=== PATIENT | male | born 1945 | race Caucasian/White ===

== ENCOUNTER 2017-03-05 06:09 | Day surgery (SDC) | payer MEDICARE, OTHER ==
[~2017-03-05 06:09] MED LIST: RINGER'S SOLUTION,LACTATED 1,000 ML IV PRN
[2017-03-05] MEDS ORDERED: RINGER'S SOLUTION,LACTATED 1,000 ML IV PRN (08:07)
[2017-03-05 09:06] VITALS: BP 113/66
--- NOTE | 2017-03-05 14:24 | OR ---
Operative Report - Dictated Report Narrative: OPERATIVE REPORT DATE OF OPERATION: 03/05/2017 PREOPERATIVE DIAGNOSIS: No recent dedicated colon studies. Diverticulosis POSTOPERATIVE DIAGNOSIS: 3 mm polyps at 15 cm and 130 cm. 4 mm polyp at 25 cm (pathology pending). Significant diverticulosis OPERATION: Colonoscopy with hot biopsy forceps polypectomies at 15 cm, 25 cm, and 130 cm SURGEON: Justin Malik MD ANESTHESIA: MAC Raciel Charlotteher MAGAÑA INDICATIONS FOR PROCEDURE: The patient is a 71-year-old male referred by Dr. Navarro. He has had previous colonoscopies in 1996, 1997, and 2005. He has diverticulosis. There is no family history of colon cancer. FINDINGS: A 3 mm polyps at 15 cm and 130 cm. 4 mm polyp at 25 cm (pathology pending). Capacious, redundant colon with significant diverticulosis NARRATIVE OF PROCEDURE: The patient was identified in the holding area, and prior to the administration of anesthetic, a multidisciplinary timeout was observed. With the patient in the left lateral position and after the administration of intravenous sedation, the perineum was inspected. There was no evidence of pilonidal disease or skin breakdown. The external appearance of the anus was normal. Sphincter tone was good. The flexible fiberoptic colonoscope was inserted into the rectum which was insufflated with air. The rectal mucosa and submucosal vascular pattern appeared normal, the prep was seen to be complete. At 15 cm there was a 3 mm area of polypoid change which was biopsied and thoroughly destroyed with electrocautery. The site was seen to be complete and hemostatic. The scope was advanced through the sigmoid colon , which contained numerous large non-impacted noninflamed diverticular openings. At 25 cm a 4 mm area of polypoid change was encountered. This was biopsied and then thoroughly destroyed with electrocautery. The site was seen to be complete and hemostatic. The scope was advanced up the descending colon, and around the splenic flexure where the triangular haustral architecture of the transverse colon was seen. The scope was advanced across the transverse colon, around the hepatic flexure to the cecum. The mucosa at this level appeared normal. The scope was then slowly withdrawn in a circular fashion so that all aspects of colonic mucosa were inspected. At 130 cm a 3 mm area of polypoid change was encountered. This was biopsied and then thoroughly destroyed with electrocautery. The site was seen to be complete and hemostatic. Scope was then further withdrawn. The colon was capacious and character and redundant in course. The haustral architecture appeared well preserved throughout with no evidence of external compression. The mucosa and submucosal vascular pattern appeared normal, specifically there was no gross evidence to suggest colitis or inflammatory bowel disease and no AV malformations were seen. The diverticulosis was moderate in degree, no inflammation or impaction was noted. No additional polyps were encountered. The scope was gradually withdrawn to the level of the rectum. As much insufflated air as possible was removed. The scope was withdrawn from the patient and the procedure terminated. The patient tolerated the anesthetic and procedure well without complication and was transferred back to the ambulatory surgery area awake and in stable condition. The patient remained stable throughout a period of postoperative observation. He denied abdominal discomfort, was able to tolerate by mouth intake, and was up without assistance. I shared the operative findings with the patient and he was given copies of the photographs which appear in the medical record. He was discharged home with instructions not to engage in hazardous activity today, but may resume normal activity tomorrow, and advance diet as tolerated. He is to continue those medications as listed in the history and physical exam. I made arrangements to contact him with the biopsy reports and will make additional recommendations for treatment and follow-up based upon those results. A pamphlet on diverticular disease was reviewed with him and his and given to them for reference. It was suggested that he begin Benefiber to titrate as needed given the degree of diverticulosis. Reviewed and electronically signed
== END 2017-03-05 06:10 | disposition home or self-care (01) ==
LOC: AMB 06:09
PROVIDERS: ATTEND Surgery
PROC: 0DBL8ZX Excision of Transverse Colon, Via Natural or Artificial Opening Endoscopic, Diagnostic (ICD-10-PCS; 2017-03-05)
PROC: 0DBN8ZX Excision of Sigmoid Colon, Via Natural or Artificial Opening Endoscopic, Diagnostic (ICD-10-PCS; principal; 2017-03-05 07:00)
DX: Z12.11 Encounter for screening for malignant neoplasm of colon (principal); D12.5 Benign neoplasm of sigmoid colon; D12.3 Benign neoplasm of transverse colon; K57.30 Diverticulosis of large intestine without perforation or abscess without bleeding; E11.9 Type 2 diabetes mellitus without complications; I10 Essential (primary) hypertension; E78.00 Pure hypercholesterolemia, unspecified; Z87.891 Personal history of nicotine dependence; Z68.35 Body mass index [BMI] 35.0-35.9, adult

== ENCOUNTER 2018-09-16 19:44 | Observation (INO) ==
[2018-09-16 20:29] LABS: Hematocrit 39.9 % (42.0-52.0); Hemoglobin 13.8 gm/dL (13.5-18.0); Mean Cell Volume 89.7 fl (78-100); Mean Corpuscular Hgb Conc 34.6 g/dl (32-36); Mean Platelet Volume 12.3 fl (8-11.3); Neutrophil % 64.5 % (42-75.0); Platelet Count 151 K/mm3 (150-450); Red Blood Count 4.45 M/mm3 (4.7-6.0); Red Cell Distribution Width 12.2 % (11.5-14.0); White Blood Count 7.7 K/mm3 (4.0-10.5)
--- NOTE | 2018-09-16 20:29 | ERNOTE ---
Neuro HPI ER Record Presenting Symptoms: confusion Time Seen by Provider: 09/16/18 19:45 Source: patient, family, EMS Exam Limitations: clinical condition Immunizations: IMMUNIZATION HX Immunizations Up to Date Yes History of Influenza Vaccine Yes Hx Pneumococcal Vaccination No Allergies/Adverse Reactions: Allergies Allergy/AdvReac Type Severity Reaction Status Date / Time No Known Allergies Allergy Verified 09/16/18 20:01 Home Medications: HOME MEDICATIONS Aspirin [Aspirin Enteric Coated] 81 mg PO DAILY 05/24/15 [Last Taken 09/16/18 06:00] Blood-Glucose Meter [Blood Glucose Monitoring] 1 ea MC DAILY 02/07/16 [Last Taken 09/16/18 06:00] losartan 100 mg-hydrochlorothiazide 25 mg tablet 1 tab PO DAILY #90 tab 10/17/17 [Last Taken 09/16/18 06:00] rosuvastatin 10 mg tablet 10 mg PO DAILY #90 tab 02/24/18 [Last Taken 09/15/18 06:00] metformin 1,000 mg tablet 1,000 mg PO BID #180 tab 04/21/18 [Last Taken 09/16/18 17:30] sildenafil (antihypertensive) 20 mg tablet 20 mg PO DAILY PRN #90 tab 04/24/18 [Last Taken Unknown] flecainide 100 mg tablet See Rx Instructions .ROUTE .COMPLEX #180 tablet 06/22/18 [Last Taken 09/16/18 17:30] metoprolol tartrate 50 mg tablet See Rx Instructions .ROUTE .COMPLEX #180 tablet 06/22/18 [Last Taken 09/16/18 17:30] Liraglutide [Victoza 3-Getachew] 1.2 mg SUBCUT .COMPLEX 09/16/18 [Last Taken 09/16/18 06:00] - History of Present Illness Narrative: states that they were eating dinner sometime around 19:00 and the patient began to have some tingling and numbness in his right hand. He then began to be confused and talk making no sense. states she called a nurse friend to get advice who said she should call 911 immediately which she did. Upon arrival EMS state the patient was confused. Upon arrival in the ED patient would not follow commands, did not know his name or birthdate but when his hands were placed out in front of him he held them there and did not have drift. Patient immediately went to CT and upon return back into the ED patient was awake and talking and alert and oriented. Onset: sudden onset Severity: moderate - Character of Deficits New weakness: Present: RUE Additional Deficits: Present: impaired speech Baseline Cognition: Present: alert, oriented x 4 Baseline Gait: Present: walks w/o assistance Associated Symptoms: Reports: none Review of Systems - Review of Systems Constitutional: Absent: recent illness ENT: Absent: nose congestion, nasal drainage Respiratory: Absent: shortness of breath, cough Cardiology: Absent: chest pain Gastrointestinal/Abdominal: Absent: nausea, vomiting Genitourinary: Absent: frequency, dysuria Musculoskeletal: Absent: back pain Skin: Absent: rash Neurological: Present: See HPI, other - states he has had episodes of confusion such as this but not as severe since May of this year. He saw neurology and they found no specific abnormalities. He began physical therapy for balance and seems to have been more clear since he started physical therapy. Medical History (Updated 09/16/18 @ 21:31 by Pravin Rangel DO) A-fib Arthritis Diabetes Erectile dysfunction Herniated disc Onset Date: ~2002 lumbar Hypercholesteremia Hypertension Hypogonadism in male Spinal stenosis Onset Date: ~10/22/16 Surgical History: Surgical History (Updated 02/25/18 @ 08:10 by Margot Fam) Cervical vertebral fusion Onset Date: ~01/30/17 [facility]7 H/O Achilles tendon repair left- done at [facility] H/O adenoidectomy H/O arthroscopic knee surgery 1 arthroscopic, 3 open H/O foot surgery Onset Date: ~01/2011 right ft. 1st tarsometatarsal joint fusion, 2nd, 3rd and 4th metatarsophalangeal joint capsulotomy, debridement, joint repair of subluxation, 2nd and 3rd distal metatarsal osteotomy and 5th bunionette correction with distal soft tissue reconstruction and 5th metatarsal osteotomy. H/O repair of left rotator cuff H/O repair of rotator cuff lft 2004 rt 1989 H/O shoulder surgery Onset Date: ~03/2014 [facility]- shoulder replaced History of tonsillectomy Hx of colonoscopy 1996, 1997, 12/16/05, 03/16 '97-polyp. '98 normal. '06 bagan-sigmoid diverticulosis, 2017 colon polyps all tubular adenoma. Hx of cystoscopy 12/06/14, 12/26/14, 04/17/15. [facility] Dr. Gilmore Hx of total knee replacement Onset Date: ~2006 [facility]- left Family History: Family History (Updated 10/14/17 @ 16:52 by Shelby Em CMA) Father Brain tumor Diabetes, Onset Age: 11 Mother CHF (congestive heart failure) Sister Cancer throat CA Social History: Preferred Language Chinese Smoking Status Former smoker Abuse History No History of abuse Psych History No pertinent hx Alcohol Use occasionally (Last Updated 06/30/18 @ 09:39 by Sarah Haas DPM) No Social History Section defined Physical Exam - Physical Exam General Appearance: Present: wd/wn, alert, no apparent distress Head Exam: Present: normal inspection, no evidence of injury Eye Exam: Normal inspection: bilateral, PERRL: bilateral, EOMI: bilateral Ears, Nose, Throat: Present: normal ENT inspection, normal pharynx Neck: Present: normal inspection, nontender Respiratory: Present: no respiratory distress, no accessory muscle use, chest nontender, lungs clear Cardiovascular/Chest: Present: regular rate, rhythm, no murmur Gastrointestinal/Abdominal: Present: normal bowel sounds, nontender, nondistended, soft Extremity Exam: Present: normal inspection, normal range of motion, no edema Neurological Exam: Present: alert, oriented, normal mood/affect, no motor/sensory deficits Skin Exam: Present: normal color, warm/dry Lymphatic Exam: Present: no adenopathy Walter Coma Scale - Assess Eye Opening: Spontaneous Motor: Obeys Commands Verbal: Oriented - initially 13 - Total Coma Scale Total: 15 Initial Stroke Assessment - Date/Time of assessment Stroke Scale Date: 09/16/18 Stroke Scale Time: 19:50 - NIH Stroke Scale Level of Consciousness: Alert LOC Questions (Year and Age): Answers neither correctly LOC Commands (open/close eyes/fist): Performs neither correct Lateral Gaze Paresis: None Visual Field Loss: No visual loss Facial Palsy: Minor paralysis Right Arm Motor (10 sec hold): No drift Left Arm Motor (10 sec hold): No drift Right Leg Motor (5 sec hold): No drift Left Leg Motor (5 sec hold): No drift Limb Ataxia (finger/nose heel/gaffney): Untestable Sensory Loss (pinprick arms/legs/face): No sensory loss Language Aphasia (description/naming/reading): Mute, global aphasia Dysarthria (speech clarity): Untestable Neglect Inattention (visual/tactile/auditory/spatial/person): No neglect Initial Stroke Scale Score:: 8 - Stroke Risk Assessment Stroke Risk Assessment Level: 5-15 Mild-Mod Severe Imp Stroke Inclusion/Exclusion Cri - Inclusion Questions: Yes Onset of symptoms <3 1/2 hours of admission to ETC: Yes - Exclusion Questions: Major symptoms rapidly improving: Yes Seizure at onset of stroke: No SBP>185; DBP>110 at time treatment is to begin: No Patient received Heparin or Coumadin within 48 hours: No Patient has elevated PTT or Protime/INR: No Stroke, head injury, major surgery, serious trauma in 3 mon.: No Previous intracranial hemmorhage: No Recent AL: No Known AV malformation or aneurysm: No Blood glucose <50mg/dl or >400mg/dl: No NIHSS Score <4 or >22 performed by physician: Yes - Total NIHSS Score Score:: 1 Secondary Stroke Assessment - Date/Time of assessment Stroke Scale Time: 20:05 - NIH Stroke Scale Level of Consciousness: Alert LOC Questions (Year and Age): Answers both correctly LOC Commands (open/close eyes/fist): Performs both correctly Lateral Gaze Paresis: None Visual Field Loss: No visual loss Facial Palsy: Normal movement Right Arm Motor (10 sec hold): No drift Left Arm Motor (10 sec hold): No drift Right Leg Motor (5 sec hold): No drift Left Leg Motor (5 sec hold): No drift Limb Ataxia (finger/nose heel/gaffney): Present in 1 limb If present, ataxia in:: Right arm Sensory Loss (pinprick arms/legs/face): No sensory loss Language Aphasia (description/naming/reading): No aphasia; normal Dysarthria (speech clarity): Normal articulation Neglect Inattention (visual/tactile/auditory/spatial/person): No neglect Secondary Stroke Scale Total:: 1 - Results of Tests Evidence of acute intracranial bleed: No Evidence of acute ischemic stroke: No CT result is negative: Yes - TPA Decision Repeat NIHSS scale per ERP: Yes Onset of symptoms & inclusion/exclusion reviewed: Yes Phoned stroke team & permission to proceed given: No Is TPA administration indicated?: No - improved Reasons for not ordering/administering TPA: Treatment not indicated - symptoms resolved Progress - Results and Orders Patient's Lab Results:: I have reviewed the patient's lab results. Results and Orders: Laboratory Tests 09/16/18 09/16/18 09/16/18 20:08 20:08 20:08 WBC 7.7 Hgb 13.8 Hct 39.9 L Plt Count 151 ESR 22 H PT 10.7 INR (Anticoag Therapy) 1.08 PTT (Win) 23.3 L Sodium Potassium Chloride BUN Creatinine Random Glucose Calcium Total Bilirubin AST ALT Alkaline Phosphatase Total Protein Albumin 09/16/18 20:08 WBC Hgb Hct Plt Count ESR PT INR (Anticoag Therapy) PTT (Win) Sodium 134 Potassium 3.4 Chloride 98 BUN 14 Creatinine 0.77 Random Glucose 222 H Calcium 9.3 Total Bilirubin 0.8 AST 39 ALT 40 Alkaline Phosphatase 46 L Total Protein 6.7 Albumin 3.5 - Vital Signs Patient's Vital Signs:: I have reviewed the patient's vital signs. Vital Signs: Vital Signs 09/16/18 19:45 Temperature 36.5 C Pulse Rate 75 Respiratory Rate 18 Blood Pressure 185/94 H O2 Sat by Pulse Oximetry 94 - EKG EKG #1 EKG: NSR, RBBB EKG read: Interp. by me - X-Ray X-Ray #1 X-Ray: chest Interpretation: Interp. by me X-ray Comments: No infiltrate or effusion. Right shoulder replacement partially seen and appears in anatomic position. - CT/Ultrasound CT/Ultrasound Narrative: Impression: No acute intracranial process. Mild cerebral volume loss. Mild chronic small vessel ischemic disease. Findings discussed by telephone with Dr. Rangel at 8:06 PM on 09/16/2018. Electronically signed by Orly Rodriguez D.O.. - Progress/Reassessment Chief Complaint: CerebroVascular Accident Progress:: Improved Progress Note-Subjective: 09/16/18 21:18 Patient continues to improve although he does have some word finding difficulty he is generally able to find the word that he is thinking of. At this time he was able to do finger nose without difficulty when he was having difficulty earlier 09/16/18 21:[address] Herron and he agrees to admit for observation. Plan - Plan Plan: Overnight observation with frequent neurochecks. Departure Clinical Impression: TIA (transient ischemic attack) - Departure Disposition: Still a patient Condition: Good
[2018-09-16 20:33] LABS: Albumin * 3.5 gm/dl (3.4-5.0); Anion Gap 12.1 mmol/L (6.8-13.8); BUN/Creatinine Ratio 18.2 (9.0-21.6); Bilirubin, Total 0.8 mg/dL (0.0-1.1); Ca. Corrected For Albumin 9.4 mg/dL (8.4-10.2); Calcium * 9.3 mg/dL (7.9-10.9); Carbon Dioxide 27.3 mmol/L (24-32.6); Potassium 3.4 mmol/L (3.4-4.6); Total Protein 6.7 gm/dL (6.2-8.2)
[2018-09-16 20:35] LABS: INR 1.08 INR (0.92-1.08); Partial Thrombolplastin Time 23.3 Seconds (24-32); Prothrombin Time (Patient) 10.7 Seconds (9.1-10.7)
[2018-09-17] MEDS ORDERED: CLOPIDOGREL BISULFATE 75 MG TABLET PO ONE (00:19)
[2018-09-17] MEDS ORDERED: ASPIRIN 81 MG TAB.CHEW PO ONE (00:19)
--- NOTE | 2018-09-17 00:44 | HP ---
Chief Complaint - Chief Complaint Date of Service: 09/17/18 Time of Service: 00:44 Chief Complaint: Slurred speech, trouble following commands History of Present Illness: 73-year-old male presented to the hospital via ambulance last night after developing difficulty speaking and trouble following commands. Patient initially was thought to be having a CVA per ER physician. She started around 7 PM while patient was having dinner, both he and his state this never happened before. In the ER neurologically intact aside from the above-stated symptoms. Patient was taken back for CT of his brain which came back showing small vessel disease but no acute intracranial processes. By the time he returned back from the CT scan patient had return to his baseline mentation. He is to follow commands without difficulty. He had no neurological symptoms. Patient was admitted under observation for TIA. He was made n.p.o. When I saw him patient stated that he felt well, had no questions or concerns. He denied any symptoms at that time. Patient was resting comfortable in bed. Medical History (Updated 09/17/18 @ 00:44 by Mikey Herron DO) A-fib Arthritis Diabetes Erectile dysfunction Herniated disc Onset Date: ~2002 lumbar Hypercholesteremia Hypertension Hypogonadism in male Spinal stenosis Onset Date: ~10/22/16 Surgical History: Surgical History (Updated 09/17/18 @ 00:44 by Mikey Herron DO) Cervical vertebral fusion Onset Date: ~01/30/17 [facility]-C6-7 H/O Achilles tendon repair left- done at [facility] H/O adenoidectomy H/O arthroscopic knee surgery 1 arthroscopic, 3 open H/O foot surgery Onset Date: ~01/2011 right ft. 1st tarsometatarsal joint fusion, 2nd, 3rd and 4th metatarsophalangeal joint capsulotomy, debridement, joint repair of subluxation, 2nd and 3rd distal metatarsal osteotomy and 5th bunionette correction with distal soft tissue reconstruction and 5th metatarsal osteotomy. H/O repair of left rotator cuff H/O repair of rotator cuff lft 2004 rt 1989 H/O shoulder surgery Onset Date: ~03/2014 [facility] shoulder replaced History of tonsillectomy Hx of colonoscopy 1996, 1997, 12/16/05, 03/16 '-polyp. normal. bagan-sigmoid diverticulosis, 2016 colon polyps all tubular adenoma. Hx of cystoscopy 12/06/14, 12/26/14, 04/17/15. [facility] Dr. Gilmore Hx of total knee replacement Onset Date: ~2006 [facility]- left Family History: Family History (Updated 10/14/17 @ 16:52 by Shelby Em [facility]) Father Brain tumor Diabetes, Onset Age: 11 Mother CHF (congestive heart failure) Sister Cancer throat CA Social History: Patient Lives/Resources With Spouse Utilized Preferred Language Ukrainian Do you have any evangelical or Yes: Yarsanism cultural preference? Smoking Status Former smoker Have you smoked in the past 12 No months Do you dip or chew tobacco No Abuse History No History of abuse Psych History No pertinent hx Alcohol Use occasionally (Last Updated 06/30/18 @ 09:39 by Sarah Haas DPM) No Social History Section defined Review Of Systems (GEN) - Review of Systems Generalized/Overall Review: Absent: Weakness, Chills, Fever EENTM: Present: No Symptoms Reported Respiratory: Present: No Symptoms Reported Cardiac: Present: No Symptoms Reported Abdominal: Present: No Symptoms Reported Genitourinary: Present: No Symptoms Reported Musculoskeletal: Present: Back Pain Neurological: Present: Pre-existing Deficit - Balance issues, chronic. Absent: Headache, Numbness, Weakness Skin: Present: No Symptoms Reported Immunizations: IMMUNIZATION HX Immunizations Up to Date Yes History of Influenza Vaccine Yes Hx Pneumococcal Vaccination No Allergies/Adverse Reactions: Allergies Allergy/AdvReac Type Severity Reaction Status Date / Time No Known Allergies Allergy Verified 09/16/18 20:01 Home Medications: HOME MEDICATIONS Aspirin [Aspirin Enteric Coated] 81 mg PO DAILY 05/24/15 [Last Taken 09/16/18 06:00] Blood-Glucose Meter [Blood Glucose Monitoring] 1 ea MC DAILY 02/07/16 [Last Taken 09/16/18 06:00] losartan 100 mg-hydrochlorothiazide 25 mg tablet 1 tab PO DAILY #90 tab 10/17/17 [Last Taken 09/16/18 06:00] rosuvastatin 10 mg tablet 10 mg PO DAILY #90 tab 02/24/18 [Last Taken 09/15/18 06:00] metformin 1,000 mg tablet 1,000 mg PO BID #180 tab 04/21/18 [Last Taken 09/16/18 17:30] sildenafil (antihypertensive) 20 mg tablet 20 mg PO DAILY PRN #90 tab 04/24/18 [Last Taken Unknown] flecainide 100 mg tablet See Rx Instructions .ROUTE .COMPLEX #180 tablet 06/22/18 [Last Taken 09/16/18 17:30] metoprolol tartrate 50 mg tablet See Rx Instructions .ROUTE .COMPLEX #180 tablet 06/22/18 [Last Taken 09/16/18 17:30] Liraglutide [Victoza 3-Getachew] 1.2 mg SUBCUT .COMPLEX 09/16/18 [Last Taken 09/16/18 06:00] Exam - Exam Vital Signs: Vital Signs - Last Taken Temp 36.5 C 09/16/18 21:50 Pulse 73 09/16/18 21:50 Resp 18 09/16/18 21:50 BP 158/75 H 09/16/18 21:50 Pulse Ox 93 09/16/18 21:50 Constitutional: Present: Alert, Oriented x3, Cooperative ENT Exam: Present: normal ENT inspection, hearing grossly normal. Absent: nasal congestion, nasal drainage, pharyngeal erythema Eye Exam: bilateral eye: normal inspection, PERRL, EOMI Neck: Present: non-tender, supple, normal inspection Respiratory: Present: lungs clear, normal breath sounds Cardiovascular/Chest: Present: regular rate, rhythm, no murmur Peripheral Pulses: carotid (R): 2+, carotid (L): 2+ Abdomen: Present: Normal bowel sounds, soft, nontender, nondistended Skin Exam: Present: normal color, warm/dry Neurologic: Present: motor electrician II-XII nml as tested, normal cerebellar test, no motor/sensory deficits, alert, normal mood/affect, oriented x 3. Absent: facial droop, motor weakness, sensory deficit, dizzy/light-headedness Appearance: Present: appropriate appearance, appropriate insight Eye contact: Present: cooperative, good eye contact Thoughts: Present: normal thought pattern, normal mood /affect Diagnostic Studies: Abnormal Lab Results 09/16/18 09/16/18 09/16/18 Range/Units 20:08 20:08 20:08 RBC 4.45 L (4.7-6.0) M/mm3 Hct 39.9 L (42.0-52.0) % MPV 12.3 H (8-11.3) fl Immature Gran % (Auto) 0.90 H (0.001-0.429) % Immature Gran # (Auto) 0.07 H (0.000-0.0310) K/mm3 Monocytes % 9.1 H (0.0-9) % Eosinophils % 4.7 H (0.0-3.0) % ESR 22 H (0-10) mm/hr PTT (Win) 23.3 L (24-32) Seconds Random Glucose (70-110) mg/dL Alkaline Phosphatase (50-170) U/L 09/16/18 Range/Units 20:08 RBC (4.7-6.0) M/mm3 Hct (42.0-52.0) % MPV (8-11.3) fl Immature Gran % (Auto) (0.001-0.429) % Immature Gran # (Auto) (0.000-0.0310) K/mm3 Monocytes % (0.0-9) % Eosinophils % (0.0-3.0) % ESR (0-10) mm/hr PTT (Coffey) (24-32) Seconds Random Glucose 222 H (70-110) mg/dL Alkaline Phosphatase 46 L (50-170) U/L Laboratory Results WBC 7.7 K/mm3 (4.0-10.5) 09/16/18 20:08 RBC 4.45 M/mm3 (4.7-6.0) L 09/16/18 20:08 Hgb 13.8 gm/dL (13.5-18.0) 09/16/18 20:08 Hct 39.9 % (42.0-52.0) L 09/16/18 20:08 MCV 89.7 fl (78-100) 09/16/18 20:08 MCH 31.0 pg (27-31) 09/16/18 20:08 MCHC 34.6 g/dl (32-36) 09/16/18 20:08 RDW 12.2 % (11.5-14.0) 09/16/18 20:08 Plt Count 151 K/mm3 (150-450) 09/16/18 20:08 MPV 12.3 fl (8-11.3) H 09/16/18 20:08 Immature Gran % (Auto) 0.90 % (0.001-0.429) H 09/16/18 20:08 Immature Gran # (Auto) 0.07 K/mm3 (0.000-0.0310) H 09/16/18 20:08 64.5 % (42-75.0) 09/16/18 20:08 20.3 % (20-51) 09/16/18 20:08 9.1 % (0.0-9) H 09/16/18 20:08 4.7 % (0.0-3.0) H 09/16/18 20:08 0.5 % (0.0-1.0) 09/16/18 20:08 Nucleated RBC % 0.0 k/mm3 (0-1) 09/16/18 20:08 5.0 K/mm3 (1.3-6.0) 09/16/18 20:08 1.56 k/mm3 (1.5-3.5) 09/16/18 20:08 0.7 k/mm3 (0.0-1.0) 09/16/18 20:08 0.4 k/mm3 (0.0-0.7) 09/16/18 20:08 Absolute Basophils 0.0 k/mm3 (0.0-0.1) 09/16/18 20:08 ESR 22 mm/hr (0-10) H 09/16/18 20:08 PT 10.7 Seconds (9.1-10.7) 09/16/18 20:08 INR (Anticoag Therapy) 1.08 INR (0.92-1.08) 09/16/18 20:08 PTT (Win) 23.3 Seconds (24-32) L 09/16/18 20:08 Sodium 134 mmol/L (132-142) 09/16/18 20:08 136 mmol/L (130-142) 09/16/18 20:08 Potassium 3.4 mmol/L (3.4-4.6) 09/16/18 20:08 Chloride 98 mmol/L (97-106) 09/16/18 20:08 Carbon Dioxide 27.3 mmol/L (24-32.6) 09/16/18 20:08 12.1 mmol/L (6.8-13.8) 09/16/18 20:08 BUN 14 mg/dL (6-23) 09/16/18 20:08 0.77 mg/dL (0.4-1.4) 09/16/18 20:08 Est GFR (Non-Af Amer) 105 mL/min (60-130) 09/16/18 20:08 18.2 (9.0-21.6) 09/16/18 20:08 222 mg/dL (70-110) H 09/16/18 20:08 Calcium 9.3 mg/dL (7.9-10.9) 09/16/18 20:08 Calcium Adj for Albumin 9.4 mg/dL (8.4-10.2) 09/16/18 20:08 0.8 mg/dL (0.0-1.1) 09/16/18 20:08 AST 39 U/L (0-48) 09/16/18 20:08 ALT 40 U/L (19-67) 09/16/18 20:08 46 U/L (50-170) L 09/16/18 20:08 6.7 gm/dL (6.2-8.2) 09/16/18 20:08 3.5 gm/dl (3.4-5.0) 09/16/18 20:08 Assessment/Plan - Narrative Narrative: 33-year-old male presented to the hospital for TIA which had resolved following CT scan. CT scan results showed small vessel disease but no other acute intracranial processes. Patient returned back to baseline mentation with no neurological defects on exam. Due to patient's ABCD2 score, will start patient on full dose aspirin as well as second antiplatelet therapy. Plavix will likely be given for a total of 3 weeks which then can be stopped and he can be continued on aspirin daily thereafter. We will continue to monitor vital signs, blood pressure returned to normal without any treatment. Patient currently n.p.o. due to need of swallow study though this likely can be changed in the morning if he continues to do well. No IV fluid at this time. Patient is comfortable resting in bed and will like to go to go home tomorrow. Recent MRI of his brain did not show any issues per family, this was done due to chronic balance problems that has been having. Patient is on anticholesterol medication which needs to be continued. Patient likely can have an outpatient carotid study but will let his PCP to determine this. He feels well without any questions or concerns at this time. Patient states understanding to the treatment plan and is in agreement with it. Nurse will call with any questions or concerns - Assessment/Plan (1) TIA (transient ischemic attack) Problem: Acute (2) Hypertension Problem: Acute (3) Diabetes mellitus, type II Problem: Chronic Qualifiers: Diabetes mellitus mcfp insulin use: without mcfp use Diabetes mellitus complication status: with neurologic complications Diabetes mellitus complication detail: with polyneuropathy Qualified Code(s): E11.42 - Type 2 diabetes mellitus with diabetic polyneuropathy
[2018-09-17] MEDS ORDERED: FLECAINIDE ACETATE 100 MG TABLET PO SCH (10:15)
[2018-09-17] MEDS ORDERED: METOPROLOL TARTRATE 50 MG TABLET PO SCH (10:15)
[2018-09-17] MEDS ORDERED: LOSARTAN POTASSIUM 50 MG TABLET PO SCH (10:30)
[2018-09-17] MEDS ORDERED: HYDROCHLOROTHIAZIDE 25 MG TABLET PO SCH (10:30)
[2018-09-17] MEDS ORDERED: LOSARTAN PO SCH (10:30)
[2018-09-17] MEDS ORDERED: LIRAGLUTIDE 1.2 MG subcut SCH (10:30)
[2018-09-17] MEDS ORDERED: ROSUVASTATIN CALCIUM 10 MG TABLET PO SCH (10:30)
[2018-09-17] MEDS ORDERED: HYDROCHLOROTHIAZIDE PO SCH (10:30)
--- NOTE | 2018-09-17 12:02 | DS ---
(1) TIA (transient ischemic attack) Problem: Acute (2) Hypertension Problem: Acute (3) Diabetes mellitus, type II Problem: Chronic Qualifiers: Diabetes mellitus skilled nursing insulin use: without skilled nursing use Diabetes kristin litus complication status: with neurologic complications Diabetes mellitus complication detail: with polyneuropathy Qualified Code(s): E11.42 - Type 2 diabetes mellitus with diabetic polyneuropathy Description of Stay: 33-year-old male presented to the hospital for TIA which had resolved following CT scan. CT scan results showed small vessel disease but no other acute intracranial processes. Patient returned back to baseline mentation with no neurological defects on exam. Due to patient's ABCD2 score, will start patient on full dose aspirin as well as second antiplatelet therapy. Plavix will likely be given for a total of 3 weeks which then can be stopped and he can be continued on aspirin daily thereafter. We will continue to monitor vital signs, blood pressure returned to normal without any treatment. Patient currently n.p.o. due to need of swallow study though this likely can be changed in the morning if he continues to do well. No IV fluid at this time. Patient is comfortable resting in bed and will like to go to go home tomorrow. Recent MRI of his brain did not show any issues per family, this was done due to chronic balance problems that has been having. Patient is on anticholesterol medication which needs to be continued. Patient likely can have an outpatient carotid study but will let his PCP to determine this. He feels well without any questions or concerns at this time. Patient states understanding to the treatment plan and is in agreement with it. We will have him follow-up with his PCP in the next week. Patient will be sent home on Plavix for an additional 3 weeks. Procedures Performed: none Results and Findings: Lab Pending Results 09/16/18 20:08: WBC 7.7, RBC 4.45 L, Hgb 13.8, Hct 39.9 L, MCV 89.7, MCH 31.0, MCHC 34.6, RDW 12.2, Plt Count 151, MPV 12.3 H, Immature Gran % (Auto) 0.90 H, Immature Gran # (Auto) 0.07 H, Neutrophils % 64.5, Lymphocytes % 20.3, Monocytes % 9.1 H, Eosinophils % 4.7 H, Basophils % 0.5, Nucleated RBC % 0.0, Neutrophils # 5.0, Lymphocytes # 1.56, Monocytes # 0.7, Eosinophils # 0.4, Absolute Basophils 0.0 09/16/18 20:08: ESR 22 H 09/16/18 20:08: PT 10.7, INR (Anticoag Therapy) 1.08, PTT (Win) 23.3 L 09/16/18 20:08: Sodium 134, Plasma Sodium 136, Potassium 3.4, Chloride 98, Carbon Dioxide 27.3, Anion Gap 12.1, BUN 14, Creatinine 0.77, Est GFR (Non-Af Amer) 105, BUN/Creatinine Ratio 18.2, Random Glucose 222 H, Calcium 9.3, Calcium Adj for Albumin 9.4, Total Bilirubin 0.8, AST 39, ALT 40, Alkaline Phosphatase 46 L, Total Protein 6.7, Albumin 3.5 Discharge Location: Home Disposition: Home self-care Condition: Good Discharge Activity: Activity as tolerated Discharge Diet: Consistent carbs Referrals: Sherman Navarro MD [Primary Care Provider] - One Week Additional Patient Instructions (free text): -Please make TCM appointment unless half-way discharge, or if following up with outside provider. Thank you! Karoline at [phone]. Prescriptions (Any new or edited meds): Clopidogrel Bisulfate [Plavix] 75 mg PO DAILY #21 tab Complete Home Medications List: Complete Home Medication List: Blood-Glucose Meter [Blood Glucose Monitoring] 1 ea MC DAILY 02/07/16 losartan 100 mg-hydrochlorothiazide 25 mg tablet 1 tab PO DAILY #90 tab 10/17/17 rosuvastatin 10 mg tablet 10 mg PO DAILY #90 tab 02/24/18 metformin 1,000 mg tablet 1,000 mg PO BID #180 tab 04/21/18 sildenafil (antihypertensive) 20 mg tablet 20 mg PO DAILY PRN #90 tab 04/24/18 flecainide 100 mg tablet See Rx Instructions .ROUTE .COMPLEX #180 tablet 06/22/18 metoprolol tartrate 50 mg tablet See Rx Instructions .ROUTE .COMPLEX #180 tablet 06/22/18 Liraglutide [Saxenda] 1.2 mg SUBCUT .COMPLEX 09/16/18 Clopidogrel Bisulfate [Plavix] 75 mg PO DAILY #21 tab 09/17/18
[2018-09-17 12:52] VITALS: BP 132/68
== END 2018-09-17 13:10 | disposition home or self-care (01) ==
LOC: ER 19:44 → MS 19:44
PROVIDERS: ADMIT Family Medicine; ATTEND Internal Medicine
CPT/HCPCS: 36415; 70450; 71010; 71045; 80053; 85025; 85610; 85652; 85730; 93005; 99285; G0378

== ENCOUNTER 2019-05-11 06:34 | Inpatient (IN) ==
[~2019-05-11 06:34] MED LIST changes: -RINGER'S SOLUTION,LACTATED 1,000 ML IV PRN; +ROPIVACAINE HCL/PF 100 MG, EPINEPHrine 0.2 MG, KETOROLAC TROMETHAMINE 30 MG in NORMAL S... IJ PRN; +TRANEXAMIC ACID 1,000 MG in NORMAL SALINE 100 ML IV PRN; +ceFAZolin SODIUM 1 GM VIAL IV PRN
--- NOTE | 2019-05-11 07:38 | ANES ---
Anesthesia Pre Procedure Eval Vitals/Labs: Last Vital Signs Temp 36.4 C 05/11/19 07:11 Pulse 74 05/11/19 07:11 Resp 18 05/11/19 07:11 BP 145/78 05/11/19 07:11 Pulse Ox 96 05/11/19 07:11 HOME MEDICATIONS Blood-Glucose Meter [Blood Glucose Monitoring] 1 ea MC DAILY 02/07/16 [Last Taken 09/16/18 06:00] sildenafil (antihypertensive) 20 mg tablet 20 mg PO DAILY PRN #90 tab 04/24/18 [Last Taken Unknown] cyclobenzaprine 5 mg tablet 5 mg PO TID PRN #30 tab 09/24/18 [Last Taken Unknown] losartan 100 mg-hydrochlorothiazide 25 mg tablet 1 tab PO DAILY #90 tab 10/12/18 [Last Taken Unknown] aspirin 81 mg tablet,delayed release 81 mg PO DAILY 12/21/18 [Last Taken Unknown] flecainide 100 mg tablet 100 mg PO BID #180 tab 12/21/18 [Last Taken Unknown] metoprolol tartrate 50 mg tablet 50 mg PO BID #180 tab 12/21/18 [Last Taken Unknown] omeprazole 40 mg capsule,delayed release 40 mg PO DAILY #90 cap 12/29/18 [Last Taken Unknown] rosuvastatin 10 mg tablet 10 mg PO DAILY #90 tab 01/11/19 [Last Taken Unknown] metformin 1,000 mg tablet 1,000 mg PO BID #180 tab 02/09/19 [Last Taken Unknown] cetirizine 10 mg tablet 10 mg PO DAILY PRN tab 05/04/19 [Last Taken Unknown] liraglutide (weight loss) 3 mg/0.5 mL (18 mg/3 mL) subcut pen injector 1.8 mg SUBCUT DAILY #15 ml 05/04/19 [Last Taken Unknown] Blood Sugar Diagnostic [Truetest Test Strips] 1 ea .ROUTE .MEDSUPPLY 05/11/19 [Last Taken 05/10/19] Pen Needle, Diabetic [Pen Needle] 1 ea .ROUTE .MEDSUPPLY 05/11/19 [Last Taken 05/10/19] Allergies/Adverse Reactions: Allergies Allergy/AdvReac Type Severity Reaction Status Date / Time No Known Allergies Allergy Verified 05/04/19 09:24 - Planned Procedure Planned Procedure: Right Arthroplasty Total Knee Medication List Reviewed:: Yes Allergies Verified: Yes Medical History (Last Reviewed 05/11/19 @ 07:31 by Hang Coronel CRNA) TIA (transient ischemic attack) Onset Date: ~09/17/18 A-fib Arthritis Diabetes Erectile dysfunction Hypercholesteremia Hypertension Hypogonadism in male Spinal stenosis Onset Date: ~10/22/16 Herniated disc Onset Date: ~2002 lumbar Surgical History (Last Reviewed 05/11/19 @ 07:31 by Hang Coronel CRNA) Cervical vertebral fusion Onset Date: ~01/30/17 [facility] H/O Achilles tendon repair left- done at [facility] H/O adenoidectomy H/O arthroscopic knee surgery 1 arthroscopic (right), 3 open (left) H/O foot surgery Onset Date: ~01/2011 right ft. 1st tarsometatarsal joint fusion, 2nd, 3rd and 4th metatarsophalangeal joint capsulotomy, debridement, joint repair of s ubluxation, 2nd and 3rd distal metatarsal osteotomy and 5th bunionette correction with distal soft tissue reconstruction and 5th metatarsal osteotomy. H/O repair of left rotator cuff H/O repair of rotator cuff lft 2004 rt 1989 H/O shoulder surgery Onset Date: ~03/2014 [facility] shoulder replaced History of tonsillectomy Hx of colonoscopy 1996, 1997, 12/16/05, 03/16 '97-polyp. '98 normal. '06 bagan-sigmoid diverticulosis, 2017 colon polyps all tubular adenoma. Hx of cystoscopy 12/06/14, 12/26/14, 04/17/15. [facility] Dr. Gilmore Hx of total knee replacement Onset Date: ~2006 [facility]- left Family History (Last Reviewed 05/11/19 @ 07:31 by Hang Coronel CRNA) Father Diabetes, Onset Age: 11 Brain tumor Mother CHF (congestive heart failure) Sister Cancer throat CA Sister Cancer lymphoma and colon Daughter Diabetes Daughter Diabetes - Family Anesthesia History Family History:: no untoward family reactions to anesthesia, no familial bleeding tendencies, no family history of clotting disorders, no family history of premature - Airway/Neck/Teeth Within Normal Limits:: Yes Teeth Condition: missing Denture Type: Partial upper, Perm crown/bridge Mallampatti Score: 3 Thyromental (T-M) distance: > 6 cm Mandibulo Hyoid distance: > 3 cm - Respiratory Respiratory Physical: lungs clear Smoking Status: Former smoker Discussed smoking cessation including day of surgery: No Sleep Apnea currently treated: No Sleep Apnea by current assessment: No Discussed Risks/Treatment of SAUNDRA: No - Cardiovascular Tolerate Activity: Fair Heart Sounds: S1 & S2, Regular - Gastrointestinal NPO since: mn - Anesthesia Assessment and Plan ASA Class: PS, III Anesthesia Type Plan: Block - Right adductor canal nerve block for postop analgesia, Spinal
[2019-05-11] MEDS ORDERED: ONDANSETRON HCL/PF 2 MG/ML VIAL ONE (07:48)
[2019-05-11] MEDS ORDERED: LIDOCAINE HCL 20 ML VIAL ONE (07:48)
[2019-05-11] MEDS ORDERED: fentaNYL CITRATE/PF 50 MCG/ML AMPUL ONE (07:48)
[2019-05-11] MEDS ORDERED: BUPIVACAINE HCL/EPINEPHRINE 50 ML VIAL ONE (07:49)
[2019-05-11] MEDS ORDERED: PROPOFOL VIAL IV ONE (07:49)
[2019-05-11] MEDS: RINGER'S SOLUTION,LACTATED 1,000 ML IV PRN ×3 (07:49→09:47)
[2019-05-11] MEDS ORDERED: MAGNESIUM HYDROXIDE 30 ML UDC PO PRN (10:50)
[2019-05-11] MEDS ORDERED: ACETAMINOPHEN 500 MG TABLET PO PRN (10:50)
[2019-05-11] MEDS ORDERED: MORPHINE SULFATE 2 MG/ML DISP.SYRIN IV PRN (10:50)
[2019-05-11] MEDS ORDERED: ONDANSETRON HCL/PF 2 MG/ML VIAL IV PRN (10:50)
[2019-05-11] MEDS ORDERED: oxyCODONE HCL/ACETAMINOPHEN 1 TAB TABLET PO PRN (10:50)
[2019-05-11] MEDS ORDERED: MAG HYDROX/ALUMINUM HYD/SIMETH 30 ML UDC PO PRN (10:50)
[2019-05-11] MEDS ORDERED: CYCLOBENZAPRINE HCL 10 MG TABLET PO PRN (10:54)
--- NOTE | 2019-05-11 11:02 | OR ---
Operative Report - Dictated Report Narrative: Date: 05/11/2019 Preoperative diagnosis: Right knee degenerative joint disease. Postoperative diagnosis: Right knee degenerative joint disease. Procedure: Right total knee arthroplasty. Surgeon: Margarito Diego M.D. Motion Picture Photographer: Kenneth Garcia PA-C provided a set of essential, skilled, educated hands that assisted in positioning, transfer, retraction, manipulation, irrigation, closure of wounds, and placement of dressings all of which could not be provided by the available surgical crew. Anesthesia: Spinal with regional block and local periarticular joint injection. Complications: None Specimens: Bone for disposal. Estimated blood loss: Minimal. Tourniquet time: 66 minutes at 300 millimeters of mercury. Retained implants: Depuy Attune size 6 standard lugged cemented posterior stabilized femoral component. Size 6 rotating bearing cemented tibial platform. 6 by 5 millimeter posterior stabilized cross-linked tibial insert. 38 millimeter medialized patella button. Indications: Carter is a 73-year-old male who has been followed in my clinic for period of time with significant complaints of right knee pain consistent with arthritic changes. They had failed conservative measures including but not limited to activity modification, passage of time, medications, and other conservative measures. Patient wished to proceed with surgical treatment. The risks, benefits, and alternatives were discussed in clinic. The risks of , blood clots, bleeding, infection, nerve/tendon blood vessel/ injury, malposition of components, intraoperative fracture, postoperative limited range of motion, persistent pain, failure of components, and need for additional procedures. Patient wished to proceed consent was obtained after answering all questions. Procedure: After marking the correct extremity on the floor, the patient was taken to the operating room. A timeout was performed. IV antibiotics consisting of 2 g of Ancef were administered prior to the procedure. A regional followed by spinal anesthetic was induced by anesthesia. on the operative table with all bony prominences well-padded. Shah catheter was placed and a bump was placed under the operative side buttock. SCDs and SAADIA hose were utilized on the nonoperative leg. A well-padded tourniquet was applied to the operative thigh. The operative leg was then pre-scrubbed with alcohol prepped and draped in a standard sterile fashion. After exsanguinating the extremity with an Esmarch bandage, the tourniquet was inflated. After marking out the anterior knee for standard incision centered over the patella, the skin was incised and dissected down to the joint retinaculum. The joint retinaculum was marked out as well as the horizontal axis of the patella, and a standard medial parapatellar arthrotomy was then made. The most proximal aspect of the quadriceps tendon and the patella tendon insertion were protected from release. A partial synovectomy was performed as well as a resection of the infrapatellar fat pad. The distal femoral fat pad proximal to the trochlea was also resected using cautery. The soft tissues were elevated off the medial aspect of the proximal tibia using a Andrade elevator ensuring that we did not transect the medial collateral ligament. Upon initial evaluation range of motion was approximately 3 degrees to 125 degrees of flexion. There were signs of advanced arthrosis in the medial and lateral joint spaces. There were large marginal osteophytes which were removed with a rongeur. The knee was hyperflexed and the patella was tucked laterally. Protecting the surrounding soft tissues with Homans, an entry drill was placed down the femoral canal using Whitesides line for guidance into the entry point. The intramedullary femoral alignment saturnino was utilized in order to cut the distal femur in 5 of valgus resecting 10 millimeters of bone. Next the distal femur was sized to a size 6. An anterior referencing guide was utilized to place the distal femoral cutting block in 3 of external rotation. This was pinned into place. The rotation was confirmed both visually and based on anatomic landmarks. The 4 in 1 cutting jig of the appropriate size was utilized in order to make all bony cuts. Retractors were utilized in order to protect surrounding soft tissues. This cut did not result in any excessive notching. We then cut the box centered over the distal femur. This allowed for resection of the anterior and posterior cruciate ligaments. I then turned my attention to the preparation of the tibia. Using an extra medullary tibial alignment saturnino, 3 millimeters of bone was resected off the medial articular surface. This was made perpendicular to the mechanical axis of the joint with the alignment saturnino centered over the ankle mortise. The alignment saturnino was parallel to the mechanical axis, centered over the medial one third of the tibial tubercle, paralleling the anterior surface of the tibia. We then turned our attention to the remaining meniscus and soft tissues. These were removed while protecting the surrounding ligaments and soft tissues. The marginal osteophytes off the anterior, posterior, medial, lateral aspects of the femur and tibia were removed. The tibia was sized out to a size 6. Next the tibia was drilled and punched in an externally rotated position as confirmed with a drop saturnino. Next the trial femur and a series of tibial inserts were utilized in order to allow for full extension and maximal flexion. It was found that a 5 millimeter insert gave the best range of motion and stability at multiple flexion points as well as at full extension there was less than 2 mm of gapping both medially and laterally. There is minimal anterior translation with the knee at 90 of flexion and no signs of being able to dislocate the knee. The patella was then prepared. The initial thickness was 23 millimeters. This was reamed down to 14 millimeters parallel to the anterior surface of the patella. It was sized out to a size 38 mm medialized patella button. This was then drilled and trialed. Without any medial restraint the patella tracked appropriately and did not sublux or dislocate. At this point, it was felt these were the appropriate sized implants and all trials were removed. The standard periarticular joint injection consisting of ropivacaine, Toradol, and epinephrine were injected into the periarticular joint tissues. The bony surfaces were thoroughly irrigated with a pulsatile-suction saline irrigation device. A bone plug from the prior resected anterior chamfer cut was placed into the drill hole at the distal femur. The bony surfaces were then dried in preparation for placement of the implants. The cement was vacuum mixed per the kaiawhina's instructions. The cement was placed on the dry bony surfaces and posterior aspect of the implants. The implants were impacted into place, removing all extruded cement. At this point anesthesia administered tranexamic acid per protocol intravenously. The knee was placed in extension with axial loading with the trial insert while the cement cured. A dilute 0.35% betadyne-saline solution was used to irrigate the knee and allowed to sit in the knee while the cement cured. Once the cement cured, all remaining extruded cement was removed. The knee was placed through a range of motion with the trial insert to ensure appropriate range of motion and stability. Final range of motion was approximately 0 to 130 degrees. The knee was again thoroughly irrigated with pulsatile saline lavage. The final polyethylene insert was then impacted into place ensuring no retained soft tissues. The remaining periartic ular joint injection was injected. The knee was then packed with lap sponges which were soaked with dilute betadyne solution and the tourniquet was let down. Pressure was held for approximately 2 minutes and then hemostasis was obtained using electrocautery to coagulate any bleeding vessels. The knee was then placed over a triangle and the arthrotomy was closed with interrupted #1 Vicryl after thoroughly irrigating the joint. The deep and subcutaneous tissues were closed with interrupted 0 and 3-0 Vicryl respectively. Skin was closed with a running subcutaneous 3-0 Monocryl and Prineo dressing. Xeroform, 4 x 4's, ABD, Sof-Rol, and a full leg Hussein wrap were applied. All sponge, needle, blade, and instrument counts were correct prior to closing the wounds. Postoperative condition: The patient was awoken and transferred to the postanesthesia care unit in stable condition. Plan is to be admitted to the inpatient medical/surgical floor postoperatively for 24 hours of IV antibiotics, physical therapy, occupational therapy, and medical co-management. Patient will be weightbearing as tolerated with range of motion as tolerated. DVT prophylaxis will be with SCDs, SAADIA hose, and pharmacological anticoagulation. Anticipated hospital stay is approximately 2-4 days.
--- NOTE | 2019-05-11 11:32 | ANES ---
Post Anesthesia Discharge - Transfer of Care Transfer of Care handoff given to nurse: Yes - Discharge from PACU Discharge from PACU when meets criteria: Yes - Discharge to ASU Discharge to ASU-no complications/pt stable: Yes
--- NOTE | 2019-05-11 11:33 | ANES ---
Anesthesia Procedure Note Procedure Note: ANESTHESIA PROCEDURE NOTE Date of Procedure: 05/11/2019. Time of procedure: 829. Performed by: Hang Coronel CRNA Data Entry Supervisor: None. Preprocedure diagnosis: Right knee degenerative joint disease. Post procedure diagnosis: Same. Procedure: Right ultrasound guided adductor canal block for postoperative analgesia. Indications: The patient is a 73-year-old male, requesting right ultrasound- guided abductor canal nerve block for postoperative analgesia related to right total knee arthroplasty. Findings: See below. Details of the procedure: The tissue over the intended target site was cleansed with ChloraPrepand draped in a sterile fashion. 2 ml Lidocaine 1 % was infiltrated to the skin and subcutaneous tissue at the intended target site. Under sterile technique and ultrasound guidance a 20-gauge block needle was inserted through the right sartorius muscle to the saphenous nerve just anterior and medial to the superficial femoral artery and vein. 15 mL's of 0.5% bupivacaine was injected after negative aspiration for blood. Needle tip and spread of local anesthetic surrounding the saphenous nerve was observed throughout the injection with real time ultrasound visualization. The needle was then removed intact. No complications were noted. The images were retained in the Hospital medical database. EBL: Minimal. Fluids: N/A. Specimen: N/A. Post procedure condition: The patient tolerated the procedure well. No complications were noted. Thank you for this consultation. Hang Coronel CRNA
--- NOTE | 2019-05-11 11:34 | ANES ---
Post Anesthesia Assessment - Vital Signs Vitals: Last Vital Signs Temp 36.5 C 05/11/19 11:25 Pulse 70 05/11/19 11:25 Resp 16 05/11/19 11:25 BP 116/68 05/11/19 11:25 Pulse Ox 96 05/11/19 11:25 Airway Patency: Normal - Mental Status Level Of Consciousness: Awake - Pain Level Pain Score: 0 - N/V Assessment Nausea/Vomiting Presence: None Dehydration:: No
[2019-05-11] MEDS: NORMAL SALINE 1,000 ML IV PRN ×2 (11:54→20:28)
[2019-05-11] MEDS: ceFAZolin SODIUM 1 GM in DEXTROSE 5 % IN WATER 50 ML IV SCH ×4 (13:13→21:27)
[2019-05-11] MEDS: oxyCODONE HCL/ACETAMINOPHEN 1 TAB TABLET PO PRN (19:36)
[2019-05-11] MEDS: METOPROLOL TARTRATE 50 MG TABLET PO SCH (20:29)
[2019-05-11] MEDS: FLECAINIDE ACETATE 100 MG TABLET PO SCH (20:29)
[2019-05-11] MEDS: ROSUVASTATIN CALCIUM 10 MG TABLET PO SCH (20:30)
[2019-05-11] MEDS: SENNOSIDES/DOCUSATE SODIUM 1 TAB TABLET PO SCH (21:27)
[2019-05-12] MEDS: oxyCODONE HCL/ACETAMINOPHEN 1 TAB TABLET PO PRN ×2 (01:05→06:08)
[2019-05-12] MEDS: ceFAZolin SODIUM 1 GM in DEXTROSE 5 % IN WATER 50 ML IV SCH ×2 (05:04)
[2019-05-12 06:34] LABS: Hematocrit 36.1 % (42.0-52.0); Hemoglobin 12.5 gm/dL (13.5-18.0); Mean Corpuscular Hemoglobin 32.2 pg (27-31); Mean Corpuscular Hgb Conc 34.6 g/dl (32-36); Mean Platelet Volume 12.1 fl (8-11.3); Platelet Count 145 K/mm3 (150-450); Red Blood Count 3.88 M/mm3 (4.7-6.0); Red Cell Distribution Width 12.6 % (11.5-14.0); White Blood Count 7.8 K/mm3 (4.0-10.5)
[2019-05-12 06:43] LABS: Anion Gap 10.8 mmol/L (6.8-13.8); BUN/Creatinine Ratio 16.7 (9.0-21.6); Calcium * 8.5 mg/dL (7.9-10.9); Estimated Creat Clear 73.2; Potassium 3.8 mmol/L (3.4-4.6)
[2019-05-12] MEDS: PANTOPRAZOLE SODIUM 40 MG TABLET.EC PO SCH (07:30)
[2019-05-12] MEDS: HYDROCHLOROTHIAZIDE 25 MG TABLET PO SCH (08:54)
[2019-05-12] MEDS: LOSARTAN POTASSIUM 50 MG TABLET PO SCH (08:54)
[2019-05-12] MEDS: METOPROLOL TARTRATE 50 MG TABLET PO SCH ×2 (08:54→21:27)
[2019-05-12] MEDS: LIRAGLUTIDE 1.8 MG SC SCH (08:55)
[2019-05-12] MEDS: FLECAINIDE ACETATE 100 MG TABLET PO SCH ×2 (08:55→21:28)
[2019-05-12] MEDS: ENOXAPARIN SODIUM 40 MG/0.4 ML SYRG SC SCH (10:14)
[2019-05-12] MEDS ORDERED: HYDROcodone/ACETAMINOPHEN 1 EACH TABLET PO PRN (10:15)
[2019-05-12] MEDS: HYDROcodone/ACETAMINOPHEN 1 EACH TABLET PO PRN (11:27)
--- NOTE | 2019-05-12 14:24 | PN ---
Subjective - Date and Time Seen Date: 05/12/19 Time: 07:45 Subjective Narrative: 73-year-old male postop day 1 reports no acute events. He does note that he has felt nauseous he did have one episode of emesis recently. He notes his pain is well controlled of his knee currently rates it a 4/10. He does note his pain is worse with weightbearing better with rest. He does note he felt significantly weak when performing physical therapy. Objective - Vitals Vitals: Last Vital Signs Temp 36.8 C 05/12/19 10:36 Pulse 77 05/12/19 10:36 Resp 18 05/12/19 10:36 BP 154/81 H 05/12/19 10:36 Pulse Ox 91 L 05/12/19 10:36 - Abnormal Lab Findings Abnormal Lab Findings: Abnormal Lab Results 05/12/19 05/12/19 Range/Units 06:29 06:29 RBC 3.88 L (4.7-6.0) M/mm3 Hgb 12.5 L (13.5-18.0) gm/dL Hct 36.1 L (42.0-52.0) % MCH 32.2 H (27-31) pg Plt Count 145 L (150-450) K/mm3 MPV 12.1 H (8-11.3) fl Random Glucose 214 H (70-110) mg/dL - Exam Constitutional: Present: Alert, Cooperative, No distress Respiratory: Present: no respiratory distress Extremity: Present: other - RLE--> sensation tact light touch, distal capillary refill brisk, postoperative bandages in place clean/dry/intact, diffuse mild tenderness about right knee, 5/5 plantar flexion dorsiflexion of the ankle Appearance: Present: appropriate appearance Eye contact: Present: cooperative Thoughts: Present: normal thought pattern Cauti Physician Documentation - Urinary Catheter Management Urethral (Shah) Date of Insertion: 05/11/19 Date of Removal: 05/12/19 Time of Removal: 05:50 Assessment/Plan Plan Narrative: -73 y/o male postop day 1 status post right total knee arthroplasty -PT/OT progress as tolerated, assistive device PRN -Diet as tolerated, consistent carbohydrate -P.O. pain medication PRN, patient was switched to [place] from Percocet due to feeling itchy and nauseated. Patient notes he is tolerated [place] in the past that complication will continue with this regimen as ordered -Maintain postoperative bandages in place -DVT prophylaxis: Niharika Mccrary in bed, SAADIA ness knee-high -Consultation with medicine physician Dr. Morocho was done on 05/12/2019 to evaluate blood glucose. Note patient has been mildly elevated since time of surgery. Plan to monitor glucose while in hospital and will follow-up with PCP within 1 week from discharge. We will continue to monitor blood sugars. Will follow medicine team recommendations. Note a [employer] halo message was sent as well as a phone call where I spoke with Dr. Morocho directly. -Disposition continue to work towards PT goals, tolerating p.o. diet, pain control with p.o. pain medication, diabetes management per medicine, once all conditions under control patient will be discharged home - Problems/Diagnosis (1) Status post total right knee replacement Problem: Acute (2) Diabetes mellitus, type II Problem: Chronic Qualifiers:
--- NOTE | 2019-05-12 16:07 | CONS ---
[facility] - General Date of Service: 05/12/19 Source: patient Exam Limitations: clinical condition - History of Present Illness Timing/Duration: 24 hours Severity: moderate Modifying Factors - (Worsens): Reports: movement Modifying Factors - (Improves): Reports: movement Associated Symptoms: denies symptoms Allergies/Adverse Reactions: Allergies No Known Allergies Allergy (Verified 05/04/19 09:24) Home Medications: Home Medications Medication Instructions Recorded Last Taken Blood-Glucose Meter [Blood Glucose 1 ea MC DAILY 02/07/16 05/10/19 Monitoring] sildenafil (antihypertensive) 20 20 mg PO DAILY PRN #90 tab 04/24/18 Unknown mg tablet cyclobenzaprine 5 mg tablet 5 mg PO TID PRN #30 tab 09/24/18 Unknown losartan 100 1 tab PO DAILY #90 tab 10/12/18 05/11/19 mg-hydrochlorothiazide 25 mg tablet aspirin 81 mg tablet,delayed 81 mg PO DAILY 12/21/18 05/06/19 release flecainide 100 mg tablet 100 mg PO BID #180 tab 12/21/18 05/10/19 metoprolol tartrate 50 mg tablet 50 mg PO BID #180 tab 12/21/18 05/11/19 omeprazole 40 mg capsule,delayed 40 mg PO DAILY #90 cap 12/29/18 05/10/19 release rosuvastatin 10 mg tablet 10 mg PO DAILY #90 tab 01/11/19 05/10/19 metformin 1,000 mg tablet 1,000 mg PO BID #180 tab 02/09/19 05/10/19 cetirizine 10 mg tablet 10 mg PO DAILY PRN tab 05/04/19 Unknown liraglutide (weight loss) 3 mg/0.5 1.8 mg SUBCUT DAILY #15 ml 05/04/19 05/10/19 mL (18 mg/3 mL) subcut pen injector Blood Sugar Diagnostic [Truetest 1 ea .ROUTE .MEDSUPPLY 05/11/19 05/10/19 Test Strips] Pen Needle, Diabetic [Pen Needle] 1 ea .ROUTE .MEDSUPPLY 05/11/19 05/10/19 Procedures Atrial cardioversion (06/13/07) Colonoscopy (12/16/05) Excision of Sigmoid Colon, Via Natural or Artificial Opening Endoscopic, Diagnostic (03/05/17) Excision of Transverse Colon, Via Natural or Artificial Opening Endoscopic, Diagnostic (03/05/17) Injection of anesthetic into spinal canal for analgesia (02/17/04) Injection of other agent into spinal canal (02/17/04) Injection of steroid (02/17/04) Injection or infusion of other therapeutic or prophylactic substance (09/12/06) Introduction of Anti-inflammatory into Epidural Space, Percutaneous Approach (12/07/15) Introduction of Local Anesthetic into Epidural Space, Percutaneous Approach (12/07/15) Removal of Internal Fixation Device from Right Metatarsal, Open Approach (02/08/16) Medications - Medications Current Medications: Current Medications Hydrocodone Bitart/Acetaminophen ([place] 5-325) 2 each PO Q4H PRN PRN Reason: Pain Stop: 06/11/19 10:17 Last Admin: 05/12/19 11:27 Dose: 2 each Documented by: Enoxaparin Sodium (Lovenox) 40 mg SC Q24H CALEB Stop: 06/11/19 09:51 Last Admin: 05/12/19 10:14 Dose: 40 mg Documented by: Flecainide Acetate (Tambocor) 100 mg PO BID CALEB Stop: 06/10/19 21:01 Last Admin: 05/12/19 08:55 Dose: 100 mg Documented by: Hydrochlorothiazide (Hydrodiuril) 25 mg PO DAILY CALEB Stop: 06/11/19 09:01 Last Admin: 05/12/19 08:54 Dose: 25 mg Documented by: Sodium Chloride (Sodium Chloride 0.9%) 1,000 mls @ 125 mls/hr IV .Q8H PRN PRN Reason: HYDRATION Stop: 06/10/19 10:51 Last Infusion: 05/12/19 04:28 Dose: Infused Documented by: Losartan Potassium (Cozaar) 100 mg PO DAILY [facility] Stop: 06/11/19 09:01 Last Admin: 05/12/19 08:54 Dose: 100 mg Documented by: Metformin HCl (Glucophage) 1,000 mg PO BIDWM CALEB Stop: 06/10/19 17:01 Last Admin: 05/12/19 08:54 Dose: 1,000 mg Documented by: Metoprolol Tartrate (Lopressor) 50 mg PO BID CALEB Stop: 06/10/19 21:01 Last Admin: 05/12/19 08:54 Dose: 50 mg Documented by: Morphine Sulfate (Morphine Sulfate) 2 mg IV Q1H PRN PRN Reason: Severe Pain (pain scale 7-10) Stop: 06/10/19 10:51 Last Admin: 05/12/19 09:57 Dose: 2 mg Documented by: Liraglutide [Saxenda (] 1.8 Mg) 1.8 mg SC DAILY [facility] Stop: 06/11/19 09:01 Last Admin: 05/12/19 08:55 Dose: Not Given Documented by: Ondansetron HCl (Zofran) 4 mg IV Q4H PRN PRN Reason: Nausea And Vomiting Stop: 06/10/19 10:51 Last Admin: 05/12/19 13:24 Dose: 4 mg Documented by: Pantoprazole Sodium (Protonix) 40 mg PO DAILY@0700 [facility] Stop: 06/11/19 07:01 Last Admin: 05/12/19 07:30 Dose: 40 mg Documented by: Rosuvastatin Calcium (Crestor) 10 mg PO [facility] Stop: 06/10/19 21:01 Last Admin: 05/11/19 20:30 Dose: 10 mg Documented by: Senna/Docusate Sodium (Senokot-S) 2 tab PO [facility] Stop: 06/10/19 21:01 Last Admin: 05/11/19 21:27 Dose: 2 tab Documented by: Review of Systems - Review of Systems Musculoskeletal: Present: Other - Status post R=TKA. Pt is diabetic and BSs are above 200. I was asked to consult and helpmanage his BSs. Physical Examination - Exam Vital Signs: Vital Signs - Last Taken Temp 36.5 C 05/12/19 15:02 Pulse 80 05/12/19 15:02 Resp 20 05/12/19 15:02 BP 144/75 05/12/19 15:02 Pulse Ox 91 L 05/12/19 15:02 O2 Oxygen Delivery Method Room Air Constitutional: Present: Alert, Cooperative, Well developed, Well nourished ENT Exam: Present: normal ENT inspection Respiratory: Present: lungs clear, normal breath sounds Cardiovascular/Chest: Present: normal peripheral pulses, regular rate, rhythm, no chest tenderness Peripheral Pulses: carotid (R): 2+, carotid (L): 2+, radial (R): 2+, radial (L): 2+ Abdomen: Present: Normal bowel sounds /Rectal: Present: Exam deferred Extremity: Present: normal range of motion - Except for the R. LE due to rencent surgery. Skin Exam: Present: normal color Neurologic: Present: jacker feeder II-XII nml as tested Appearance: Present: appropriate appearance, appropriate insight, neat Eye contact: Present: cooperative Thoughts: Present: normal thought pattern, no apparent hallucination - Results and Findings: Lab/Microbiology results last 24 hrs: Abnormal/Pending Laboratory Last 24 HRS 05/12/19 05/12/19 06:29 06:29 RBC 3.88 L Hgb 12.5 L Hct 36.1 L MCH 32.2 H Plt Count 145 L MPV 12.1 H Random Glucose 214 H - Assessments/Findings (1) Diabetes mellitus, type II Problem: Chronic Qualifiers: Diabetes mellitus fpc insulin use: without rodent exterminator use Diabetes mellitus complication status: without complication Qualified Code(s): E11.9 - Type 2 diabetes mellitus without complications (2) Status post total right knee replacement Diagnosis(s): Osteoprthritis Problem: Acute
[2019-05-12] MEDS: INSULIN LISPRO 100 UNITS/ML VIAL SC SCH (17:34)
[2019-05-12] MEDS: SENNOSIDES/DOCUSATE SODIUM 1 TAB TABLET PO SCH (21:27)
[2019-05-12] MEDS: ROSUVASTATIN CALCIUM 10 MG TABLET PO SCH (21:27)
[2019-05-13] MEDS: HYDROcodone/ACETAMINOPHEN 1 EACH TABLET PO PRN ×2 (01:01→10:39)
[2019-05-13 06:26] LABS: Hematocrit 28.9 % (42.0-52.0); Hemoglobin 10.3 gm/dL (13.5-18.0); Mean Cell Volume 90.3 fl (78-100); Mean Corpuscular Hemoglobin 32.2 pg (27-31); Mean Corpuscular Hgb Conc 35.6 g/dl (32-36); Mean Platelet Volume 11.4 fl (8-11.3); Platelet Count 121 K/mm3 (150-450); Red Cell Distribution Width 12.4 % (11.5-14.0); White Blood Count 8.3 K/mm3 (4.0-10.5)
[2019-05-13 06:38] LABS: Anion Gap 11.1 mmol/L (6.8-13.8); BUN/Creatinine Ratio 13.8 (9.0-21.6); Calcium * 8.4 mg/dL (7.9-10.9); Carbon Dioxide 28.5 mmol/L (24-32.6); Estimated Creat Clear 87.8; Potassium 3.6 mmol/L (3.4-4.6)
[2019-05-13] MEDS: INSULIN LISPRO 100 UNITS/ML VIAL SC SCH (08:10)
[2019-05-13] MEDS: LOSARTAN POTASSIUM 50 MG TABLET PO SCH (08:14)
[2019-05-13] MEDS: FLECAINIDE ACETATE 100 MG TABLET PO SCH (08:14)
[2019-05-13] MEDS: METOPROLOL TARTRATE 50 MG TABLET PO SCH (08:16)
[2019-05-13] MEDS: PANTOPRAZOLE SODIUM 40 MG TABLET.EC PO SCH (08:16)
[2019-05-13] MEDS: LIRAGLUTIDE 1.8 MG SC SCH (08:16)
[2019-05-13] MEDS: HYDROCHLOROTHIAZIDE 25 MG TABLET PO SCH (08:16)
--- NOTE | 2019-05-13 09:48 | PN ---
Progess Note - Interim Date: 05/13/19 Time: 09:45 Narrative: 05/13/19 09:46 The blood sugars have not improved with the addition of a medium range sliding scale. I am advised that he has been taking Saxenda at home but we do not have any of the GLP-1 drugs here in the hospital. His is to bring it in but so far it has not appeared. I have increased his sliding scale to a high range sliding scale this morning and we will see how that impacts his blood sugars. I will also add insulin glargine 15 units daily starting this morning. 05/13/19 09:47
[2019-05-13] MEDS ORDERED: INSULIN GLARGINE,HUM.REC.ANLOG 100 UNITS/ML VIAL SC SCH (10:00)
[2019-05-13] MEDS: ENOXAPARIN SODIUM 40 MG/0.4 ML SYRG SC SCH (10:39)
[2019-05-13] MEDS ORDERED: INSULIN LISPRO 100 UNITS/ML VIAL SC SCH (12:00)
--- NOTE | 2019-05-13 15:01 | DS ---
(1) Status post total right knee replacement Problem: Acute (2) Diabetes mellitus, type II Problem: Chronic Qualifiers: Diabetes mellitus alf insulin use: without alf use Diabetes mellitus complication status: without complication Qualified Code(s): E11.9 - Type 2 diabetes mellitus without complications Date of Discharge:: 05/13/19 Hospital Course: 73-year-old male postop day 2 status post right total knee arthroplasty. Patient has had a fairly uncomplicated stay he was admitted postoperatively for monitoring, pain control, postoperative complications, return to p.o. diet, PT/OT. Patient has had no acute events however his blood sugar has been slightly elevated from what his normal ranges at home. Note he was not able to bring 1 of his home p.o. medications. The medicine team was consulted there is been adjusted sliding scale insulin that patient has used during his stay in the hospital. Patient's right total knee arthroplasty surgery was uncomplicated. Patient tolerated the procedure well and was recovered without any significant concerns. Over the past 2 days patient has performed and met physical therapy goals including stairs. Patient's pain is well controlled with p.o. pain medication. Patient is returned to a p.o. diet without significant nausea. Exam today revealed right lower extremity--> sensation intact light touch, 5/5 plantar flexion dorsiflexion, distal capillary refill brisk, diffuse mild tenderness about right knee, pernio dressing in place, no significant erythema or drainage. Oral [place] is confined to the home due to right total knee arthroplasty. The need for halfway is for monitoring postoperative dressing, postoperative pain control with p.o. medications, the need for physical therapy and the need for occupational therapy to work towards activities of daily living and basic ambulation needs. The need for home health care skilled services is directly related to the time spent [id number] with this person. Patient will continue with the following recommendations: -PT/OT starting with home health once patient is able to ambulate without significant complication he will begin going to outpatient physical therapy -P.o. diet as tolerated -P.o. pain medication PRN, Aiken 5/325 mg 1-2 tabs every 4 to 6 hours PRN for pain p.o. -DVT prophylaxis: Lovenox until 10 days postop followed by 325 mg aspirin daily for 6 weeks -Follow-up in orthopedic outpatient clinic at 2 weeks postop -Follow-up with PCP next week to monitor blood sugars as well as blood pressure check -Diabetes mellitus return to p.o. medications at home, discussed with patient to monitor blood sugars multiple times a day if significant concern call or present acutely -Disposition discharge home with home health physical therapy and halfway, follow-up with orthopedic outpatient clinic at 2 weeks postop Procedures Performed: see notes below List Procedures: Status post right total knee arthroplasty Results and Findings: Lab Pending Results 05/12/19 06:29: WBC 7.8, RBC 3.88 L, Hgb 12.5 L, Hct 36.1 L, MCV 93.0, MCH 32.2 H, MCHC 34.6, RDW 12.6, Plt Count 145 L, MPV 12.1 H 05/12/19 06:29: Sodium 134, Plasma Sodium 136, Potassium 3.8, Chloride 99, Carbon Dioxide 28.0, Anion Gap 10.8, BUN 13, Creatinine 0.78, Est GFR (Non-Af Amer) 103, BUN/Creatinine Ratio 16.7, Random Glucose 214 H, Calcium 8.5 05/13/19 06:22: WBC 8.3, RBC 3.20 L, Hgb 10.3 L, Hct 28.9 L, MCV 90.3, MCH 32.2 H, MCHC 35.6, RDW 12.4, Plt Count 121 L, MPV 11.4 H 05/13/19 06:22: Sodium 131 L, Plasma Sodium 133, Potassium 3.6, Chloride 95 L, Carbon Dioxide 28.5, Anion Gap 11.1, BUN 9, Creatinine 0.65, Est GFR (Non-Af Amer) 127 D, BUN/Creatinine Ratio 13.8, Random Glucose 221 H, Calcium 8.4 Discharge Location: Home Disposition: Home Health Service Home Health Agency: [facility] Home Health Condition: Good Discharge Activity: Activity as tolerated, Weight bearing - walker for assistance PRN Discharge Diet: General/regular food Referrals: Margarito Diego MD [Staff Physician] - 05/26/19 9:30 am Sherman Navarro MD [Primary Care Provider] - Problem Oriented Discharge Instructions to Patient/Family: Total Knee Replacement, Care After, [id number] Print Language (Spanish or Andorran Available): Spanish Additional Patient Instructions (free text): Follow up with on Thursday 05/18 next week. Follow up with Dr. Diego in the Orthopedic office on FridayMay 26 at 9:30am. [facility] new, please call them and fax discharge information to them. Prescriptions (Any new or edited meds): Enoxaparin Sodium [Lovenox] 40 mg SC Q24H #8 disp.syrin Transmission Status: Pending to [place], [place] HYDROcodone/ACETAMINOPHEN [Aiken 5-325] 1 - 2 ea PO Q4H PRN #75 tab PRN Reason: Pain Transmission Status: Sent to [place], [place] Complete Home Medications List: Complete Home Medication List: Blood-Glucose Meter [Blood Glucose Monitoring] 1 ea MC DAILY 02/07/16 sildenafil (antihypertensive) 20 mg tablet 20 mg PO DAILY PRN #90 tab 04/24/18 cyclobenzaprine 5 mg tablet 5 mg PO TID PRN #30 tab 09/24/18 losartan 100 mg-hydrochlorothiazide 25 mg tablet 1 tab PO DAILY #90 tab 10/12/18 aspirin 81 mg tablet,delayed release 81 mg PO DAILY 12/21/18 flecainide 100 mg tablet 100 mg PO BID #180 tab 12/21/18 metoprolol tartrate 50 mg tablet 50 mg PO BID #180 tab 12/21/18 omeprazole 40 mg capsule,delayed release 40 mg PO DAILY #90 cap 12/29/18 rosuvastatin 10 mg tablet 10 mg PO DAILY #90 tab 01/11/19 metformin 1,000 mg tablet 1,000 mg PO BID #180 tab 02/09/19 cetirizine 10 mg tablet 10 mg PO DAILY PRN tab 05/04/19 liraglutide (weight loss) 3 mg/0.5 mL (18 mg/3 mL) subcut pen injector 1.8 mg SUBCUT DAILY #15 ml 05/04/19 Blood Sugar Diagnostic [Truetest Test Strips] 1 ea .ROUTE .MEDSUPPLY 05/11/19 Pen Needle, Diabetic [Pen Needle] 1 ea .ROUTE .MEDSUPPLY 05/11/19 Enoxaparin Sodium [Lovenox] 40 mg SC Q24H #8 disp.syrin 05/13/19 HYDROcodone/ACETAMINOPHEN [Aiken 5-325] 1 - 2 ea PO Q4H PRN #75 tab 05/13/19 Amb Orders for Discharge: PT Evaluation and Treatment* Location: None Selected
[2019-05-13 16:01] VITALS: BP 138/65
== END 2019-05-13 16:50 | disposition home health service (06) | DRG 470 ==
LOC: MS 06:34 → EDSTATUS 08:30
PROVIDERS: ADMIT Orthopaedic Surgery; ATTEND Orthopaedic Surgery
DX: E78.00 Pure hypercholesterolemia, unspecified; I48.91 Unspecified atrial fibrillation; I10 Essential (primary) hypertension; E11.65 Type 2 diabetes mellitus with hyperglycemia; Z87.891 Personal history of nicotine dependence; M17.11 Unilateral primary osteoarthritis, right knee
CPT/HCPCS: 36415; 73560; 80048; 85027; 97110; 97116; 97161; 97165; 97535; J2405

== ENCOUNTER 2020-04-08 12:08 | Observation (INO) ==
[2020-04-08] MEDS ORDERED: ASPIRIN 81 MG TAB.CHEW ONE (12:20)
[2020-04-08] MEDS ORDERED: NITROGLYCERIN 0.4 MG/TAB BTL SL ONE ×2 (12:21→12:24)
[2020-04-08] MEDS ORDERED: ASPIRIN 81 MG TAB.CHEW PO ONE (12:23)
[2020-04-08 12:57] LABS: Hematocrit 40.3 % (42.0-52.0); Hemoglobin 13.7 gm/dL (13.5-18.0); Mean Cell Volume 92.6 fl (78-100); Mean Corpuscular Hemoglobin 31.5 pg (27-31); Mean Platelet Volume 12.3 fl (8-11.3); Neutrophil # 5.1 K/mm3 (1.3-6.0); Neutrophil % 61.4 % (42-75.0); Platelet Count 214 K/mm3 (150-450); Red Blood Count 4.35 M/mm3 (4.7-6.0); Red Cell Distribution Width 12.1 % (11.5-14.0); White Blood Count 8.2 K/mm3 (4.0-10.5)
[2020-04-08 13:05] LABS: Prothrombin Time (Patient) 11.7 Seconds (9.1-10.7)
[2020-04-08 13:11] LABS: INR 1.19 INR (0.92-1.08); Partial Thrombolplastin Time 27.2 Seconds (24-32)
[2020-04-08 13:14] LABS: ALT 44 U/L (19-67); AST 31 U/L (0-48); Albumin * 3.6 gm/dl (3.4-5.0); Alkaline Phosphatase * 53 U/L (50-170); Anion Gap 11.4 mmol/L (6.8-13.8); BUN/Creatinine Ratio 13.6 (9.0-21.6); Bilirubin, Total 0.9 mg/dL (0.0-1.1); Blood Urea Nitrogen 12 mg/dL (6-23); Ca. Corrected For Albumin 9.2 mg/dL (8.4-10.2); Calcium * 9.2 mg/dL (7.9-10.9); Carbon Dioxide 29.3 mmol/L (24-32.6); Chloride 97 mmol/L (97-106); Glucose * 203 mg/dL (70-110); Potassium 3.7 mmol/L (3.4-4.6); Sodium 134 mmol/L (132-142); Troponin I Less than 0.017 ng/mL (0.00-0.10)
--- NOTE | 2020-04-08 13:44 | ERNOTE ---
Chest Pain/Cardiac HPI Date of Service: 04/08/20 Chief Complaint: Chest Pain Time Seen by Provider: 04/08/20 12:30 Source: patient Exam Limitations: no limitations Immunizations: IMMUNIZATION HX Immunizations Up to Date Yes History of Influenza Vaccine Yes Hx Pneumococcal Vaccination Yes Allergies/Adverse Reactions: Allergies No Known Allergies Allergy (Verified 04/06/20 09:43) Home Medications: HOME MEDICATIONS Blood-Glucose Meter [Blood Glucose Monitoring] 1 ea MC DAILY 02/07/16 [Last Taken 05/10/19] Blood Sugar Diagnostic [Truetest Test Strips] 1 ea .ROUTE .MEDSUPPLY 05/11/19 [Last Taken 05/10/19] pen needle, diabetic 32 gauge x 3/16" 1 ea .ROUTE DAILY #50 ea 11/24/19 [Last Taken Unknown] pen needle, diabetic 32 gauge x 316" See Rx Instructions .ROUTE .MEDSUPPLY #100 ea 11/29/19 [Last Taken Unknown] liraglutide (weight loss) 3 mg/0.5 mL (18 mg/3 mL) subcut pen injector 1.8 mg SUBCUT DAILY #15 ml 12/20/19 [Last Taken Unknown] fluticasone propionate 50 mcg/actuation nasal spray,suspension 1 spray MARIOLA DAILY #18.2 ml 01/06/20 [Last Taken Unknown] losartan 100 mg-hydrochlorothiazide 25 mg tablet 1 tab PO DAILY #90 tab 01/11/20 [Last Taken Unknown] metformin 1,000 mg tablet See Rx Instructions .ROUTE .COMPLEX #180 unknown measurement unit code: tablet 02/02/20 [Last Taken Unknown] rosuvastatin 10 mg tablet See Rx Instructions .ROUTE .COMPLEX #90 unknown measurement unit code: tablet 02/14/20 [Last Taken Unknown] apixaban 5 mg tablet 5 mg PO BID 04/06/20 [Last Taken Unknown] donepezil 5 mg tablet 5 mg PO DAILY 04/06/20 [Last Taken Unknown] omeprazole 40 mg capsule,delayed release See Rx Instructions .ROUTE .COMPLEX #90 unknown measurement unit code: capsule 04/06/20 [Last Taken Unknown] sotalol 80 mg tablet 80 mg PO BID #180 tab 04/06/20 [Last Taken Unknown] Narrative: Patient presents to the ED for an episode beginning an hour ago where he was at rest and felt the left side of his face feel funny, left tongue. Then his left arm felt numb and had some difficulty using it - did not feel like it was moving correctly. Also had left sided chest pain with this. ASA nad NTG given on arrival here and now CP resolved. Had some LAZO earlier, no mild LAZO after the NTG. No severe headache. Nothing makes this better or worse. Timing: gone now Severity/Quality: moderate Location: left chest Chest Pain Radiation: no radiation Activities at Onset: none Modifying Factors - Improves: Present: other - NTG relieved his CP Modifying Factors - Worsens: Present: nothing Nitro Today/Relief: no nitro taken today Associated Symptoms: Present: headache. Absent: cough, shortness of breath, palpitations, nausea, vomiting, abdominal pain Prior Chest Pain/Cardiac Workup: Reports: no prior cardiac workup Prior Treatment: Denies: recently seen Review of Systems - Review of Systems Constitutional: Absent: fever EYE: Absent: vision changes ENT: Present: no symptoms reported Respiratory: Absent: shortness of breath Cardiology: Present: See HPI Gastrointestinal/Abdominal: Absent: abdominal pain Neurological: Present: See HPI All Other Systems: All systems neg except as marked Medical History (Last Reviewed 04/08/20 @ 13:39 by Jorge Ram MD) Hx of myocardial infarction 2020 TIA (transient ischemic attack) Onset Date: ~09/17/18 A-fib Arthritis Diabetes Erectile dysfunction Hypercholesteremia Hypertension Hypogonadism in male Spinal stenosis Onset Date: ~10/22/16 Herniated disc Onset Date: ~2002 lumbar Surgical History: Surgical History (Last Reviewed 04/08/20 @ 13:39 by Jorge Ram MD) Cervical vertebral fusion Onset Date: ~01/30/17 [facility]-C6-7 H/O Achilles tendon repair left- done at [facility] H/O adenoidectomy H/O arthroscopic knee surgery 1 arthroscopic (right), 3 open (left) H/O foot surgery Onset Date: ~01/2011 right ft. 1st tarsometatarsal joint fusion, 2nd, 3rd and 4th metatarsophalangeal joint capsulotomy, debridement, joint repair of subluxation, 2nd and 3rd distal metatarsal osteotomy and 5th bunionette correction with distal soft tissue reconstruction and 5th metatarsal osteotomy. H/O repair of left rotator cuff H/O repair of rotator cuff lft 2004 rt 1989 H/O shoulder surgery Onset Date: ~03/2014 [facility] shoulder replaced History of arthroplasty of right knee Onset Date: ~05/11/19 Right total knee arthroplasty: Dr. Diego History of tonsillectomy Hx of colonoscopy 1996, 1997, 12/16/05, 03/16-polyp. normal. bagan-sigmoid diverticulosis, 2017 colon polyps all tubular adenoma. Hx of cystoscopy 12/06/14, 12/26/14, 04/17/15. [facility] Dr. Gilmore Hx of total knee replacement Onset Date: ~2006 [facility]- left Family History: Family History (Last Reviewed 04/08/20 @ 13:39 by Jorge Ram MD) Father Diabetes, Onset Age: 11 Brain tumor Mother CHF (congestive heart failure) Sister Cancer throat CA Sister Cancer lymphoma and colon Daughter Diabetes Daughter Diabetes Social History: (Last Reviewed 04/08/20 @ 13:39 by Jorge Ram MD) Social History: Marital status: household members: spouse number of children: 2 current occupational status: retired current occupation: retired Highest level of school completed/degree received: high school graduate Service: Yes branch: [employer] Tobacco: Smoking Status: Former smoker how long ago did patient quit smokin+ years ago Alcohol: alcohol intake: current Alcohol type: beer alcohol intake frequency: holiday/special occasion Substance Use: substance use type: does not use Dietary Habits: caffeine: Yes caffeine comment: 5 cups daily Type: coffee Exercise: Physical activity type: walking Physical Exam - Physical Exam General Appearance: Present: alert, no apparent distress Head Exam: Present: normal inspection, no evidence of injury Eye Exam: Normal inspection: bilateral, PERRL: bilateral Ears, Nose, Throat: Present: normal ENT inspection Neck: Present: normal inspection Respiratory: Present: no respiratory distress, normal breath sounds, no accessory muscle use, lungs clear Cardiovascular/Chest: Present: regular rate, rhythm, normal peripheral pulses Gastrointestinal/Abdominal: Present: normal bowel sounds, nontender, soft Back Exam: Present: normal range of motion Extremity Exam: Present: normal range of motion Neurological Exam: Present: alert, no motor/sensory deficits, 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 Absent: facial droop, motor weakness Skin Exam: Present: normal color, warm/dry Progress - Results and Orders Patient's Lab Results:: I have reviewed the patient's lab results. - Vital Signs Patient's Vital Signs:: I have reviewed the patient's vital signs. Vital Signs: Vital Signs 04/08/20 12:12 04/08/20 12:16 04/08/20 12:30 Temperature 37.0 C Pulse Rate 80 98 85 Respiratory Rate 16 22 H Blood Pressure 156/85 H 104/59 O2 Sat by Pulse Oximetry 98 98 04/08/20 13:15 Temperature Pulse Rate 84 Respiratory Rate 16 Blood Pressure 147/76 O2 Sat by Pulse Oximetry 96 - EKG EKG #1 EKG: NSR EKG read: Interp. by dc EKG Comments: NSR rate 79. Non-specific ST/T wave changes, no STEMI noted/ - X-Ray X-Ray #1 X-Ray: chest Interpretation: Interp. by me X-ray Comments: I personally reviewed CXR images as well as official radiology report - CT/Ultrasound CT/Ultrasound Narrative: I reviewed official radiology report for CT head. - Progress/Reassessment Chief Complaint: Chest Pain Progress Note-Subjective: 04/08/20 13:42 patient had resolution of CP with ASA and NTG. Given risk factors I feel full R/O appropriate. Also likely had TIA with left face/arm sensory Sx and left arm motor Sx. These have resolved. I spoke with Dr Sorto who will admit for further evaluation and management. Patient is agreeable. Departure Clinical Impression: TIA (transient ischemic attack), Chest pain - Departure Disposition: Still a patient Condition: Stable Referrals: Sherman Navarro MD [Primary Care Provider] -
--- NOTE | 2020-04-08 19:27 | HP ---
Chief Complaint - Chief Complaint Date of Service: 04/08/20 Time of Service: 19:26 Chief Complaint: CP History of Present Illness: Patient with past medical history of previous TIA, type 2 diabetes, A. fib, hypertension was at home today and developed some left upper lip, left tongue, left hand numbness that lasted for about a minute, followed by left-sided chest pain. His cardiac medications were adjusted about a month ago by his cardiolo gist in [place]. He has not had a recent stress test. At the time of my exam, the numbness had resolved, but the left-sided dull chest pain persists and is intermittent. Denies shortness of breath, diaphoresis, nausea with the chest pain. No recent illness. He had a recent cervical spine surgery, possibly a fusion. Medical History (Last Reviewed 04/08/20 @ 15:41 by Esme Rob RN) Hx of myocardial infarction 2020 TIA (transient ischemic attack) Onset Date: ~09/17/18 A-fib Arthritis Diabetes Erectile dysfunction Hypercholesteremia Hypertension Hypogonadism in male Spinal stenosis Onset Date: ~10/22/16 Herniated disc Onset Date: ~2002 lumbar Surgical History: Surgical History (Last Reviewed 04/08/20 @ 15:41 by Esme oRb RN) Cervical vertebral fusion Onset Date: ~01/30/17 [facility]C6[facility]7 H/O Achilles tendon repair left- done at [facility] H/O adenoidectomy H/O arthroscopic knee surgery 1 arthroscopic (right), 3 open (left) H/O foot surgery Onset Date: ~01/2011 right ft. 1st tarsometatarsal joint fusion, 2nd, 3rd and 4th metatarsophalangeal joint capsulotomy, debridement, joint repair of subluxat ion, 2nd and 3rd distal metatarsal osteotomy and 5th bunionette correction with distal soft tissue reconstruction and 5th metatarsal osteotomy. H/O repair of left rotator cuff H/O repair of rotator cuff lft 2004 rt 1989 H/O shoulder surgery Onset Date: ~03/[address] [facility] shoulder replaced History of arthroplasty of right knee Onset Date: ~05/11/19 Right total knee arthroplasty: Dr. Diego History of tonsillectomy Hx of colonoscopy 1996, 1997, 12/16/05, 03/16 '-polyp. normal. bagan-sigmoid diverticulosis, 2017 colon polyps all tubular adenoma. Hx of cystoscopy 12/06/14, 12/26/14, 04/17/15. [facility] Dr. Gilmore Hx of total knee replacement Onset Date: ~2006 [facility]- left Family History: Family History (Last Reviewed 04/08/20 @ 13:39 by Jorge Ram MD) Father Diabetes, Onset Age: 11 Brain tumor Mother CHF (congestive heart failure) Sister Cancer throat CA Sister Cancer lymphoma and colon Daughter Diabetes Daughter Diabetes Social History: (Last Reviewed 04/08/20 @ 13:39 by Jorge Ram MD) Social History: Marital status: household members: spouse number of children: 2 current occupational status: retired current occupation: retired Highest level of school completed/degree received: high school graduate Service: Yes branch: [employer] Tobacco: Smoking Status: Former smoker how long ago did patient quit smokin+ years ago Alcohol: alcohol intake: current Alcohol type: beer alcohol intake frequency: holiday/special occasion Substance Use: substance use type: does not use Dietary Habits: caffeine: Yes caffeine comment: 5 cups daily Type: coffee Exercise: Physical activity type: walking Review Of Systems (GEN) - Review of Systems Generalized/Overall Review: Absent: Fever Respiratory: Absent: Cough, Shortness of Breath Cardiac: Present: Chest Pain, Edema - Chronic bilateral ankle pain Abdominal: Absent: Nausea Genitourinary: Present: No Symptoms Reported Neurological: Present: Numbness Immunizations: IMMUNIZATION HX Immunizations Up to Date Yes History of Influenza Vaccine Yes Hx Pneumococcal Vaccination Yes Allergies/Adverse Reactions: Allergies Allergy/AdvReac Type Severity Reaction Status Date / Time No Known Allergies Allergy Verified 04/06/20 09:43 Home Medications: HOME MEDICATIONS Blood-Glucose Meter [Blood Glucose Monitoring] 1 ea MC DAILY 02/07/16 [Last Taken 05/10/19] Blood Sugar Diagnostic [Truetest Test Strips] 1 ea .ROUTE .MEDSUPPLY 05/11/19 [Last Taken 05/10/19] pen needle, diabetic 32 gauge x 06/13" 1 ea .ROUTE DAILY #50 ea 11/24/19 [Last Taken Unknown] pen needle, diabetic 32 gauge x 16" See Rx Instructions .ROUTE .MEDSUPPLY #100 ea 11/29/19 [Last Taken Unknown] liraglutide (weight loss) 3 mg/0.5 mL (18 mg/3 mL) subcut pen injector 1.8 mg SUBCUT DAILY #15 ml 12/20/19 [Last Taken Unknown] fluticasone propionate 50 mcg/actuation nasal spray,suspension 1 spray MARIOLA DAILY #18.2 ml 01/06/20 [Last Taken Unknown] losartan 100 mg-hydrochlorothiazide 25 mg tablet 1 tab PO DAILY #90 tab 01/11/20 [Last Taken Unknown] metformin 1,000 mg tablet See Rx Instructions .ROUTE .COMPLEX #180 unknown measurement unit code: tablet 02/02/20 [Last Taken Unknown] rosuvastatin 10 mg tablet See Rx Instructions .ROUTE .COMPLEX #90 unknown measurement unit code: tablet 02/14/20 [Last Taken Unknown] apixaban 5 mg tablet 5 mg PO BID 04/06/20 [Last Taken Unknown] donepezil 5 mg tablet 5 mg PO DAILY 04/06/20 [Last Taken Unknown] omeprazole 40 mg capsule,delayed release See Rx Instructions .ROUTE .COMPLEX #90 unknown measurement unit code: capsule 04/06/20 [Last Taken Unknown] sotalol 80 mg tablet 80 mg PO BID #180 tab 04/06/20 [Last Taken Unknown] Rosuvastatin Calcium 10 mg PO DAILY 04/08/20 [Last Taken Unknown] Exam - Exam Vital Signs: Vital Signs - Last Taken Temp 36.5 C 04/08/20 18:23 Pulse 74 04/08/20 18:23 Resp 16 04/08/20 18:23 BP 141/74 04/08/20 18:23 Pulse Ox 99 04/08/20 18:23 Constitutional: Present: Alert, Oriented x3, Cooperative, No distress, Obese Respiratory: Present: lungs clear, normal breath sounds, no respiratory distress Cardiovascular/Chest: Present: regular rate, rhythm Abdomen: Present: soft, nontender Extremity: Present: lower extremity edema - 1+ bilateral ankle Neurologic: Present: 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, normal mood/affect Eye contact: Present: cooperative, good eye contact Diagnostic Studies: Abnormal Lab Results 04/08/20 04/08/20 04/08/20 Range/Units 12:46 12:46 12:46 RBC 4.35 L (4.7-6.0) M/mm3 Hct 40.3 L (42.0-52.0) % MCH 31.5 H (27-31) pg MPV 12.3 H (8-11.3) fl Immature Gran % (Auto) 0.50 H (0.001-0.429) % Immature Gran # (Auto) 0.04 H (0.000-0.0310) K/mm3 Eosinophils % 4.3 H (0.0-3.0) % PT 11.7 H (9.1-10.7) Seconds INR (Anticoag Therapy) 1.19 H (0.92-1.08) INR Random Glucose 203 H (70-110) mg/dL Laboratory Results WBC 8.2 K/mm3 (4.0-10.5) 04/08/20 12:46 RBC 4.35 M/mm3 (4.7-6.0) L 04/08/20 12:46 Hgb 13.7 gm/dL (13.5-18.0) 04/08/20 12:46 Hct 40.3 % (42.0-52.0) L 04/08/20 12:46 MCV 92.6 fl (78-100) 04/08/20 12:46 MCH 31.5 pg (27-31) H 04/08/20 12:46 MCHC 34.0 g/dl (32-36) 04/08/20 12:46 RDW 12.1 % (11.5-14.0) 04/08/20 12:46 Plt Count 214 K/mm3 (150-450) 04/08/20 12:46 MPV 12.3 fl (8-11.3) H 04/08/20 12:46 Immature Gran % (Auto) 0.50 % (0.001-0.429) H 04/08/20 12:46 Immature Gran # (Auto) 0.04 K/mm3 (0.000-0.0310) H 04/08/20 12:46 Neutrophils % 61.4 % (42-75.0) 04/08/20 12:46 Lymphocytes % 24.9 % (20-51) 04/08/20 12:46 Monocytes % 8.4 % (0.0-9) 04/08/20 12:46 Eosinophils % 4.3 % (0.0-3.0) H 04/08/20 12:46 Basophils % 0.5 % (0.0-1.0) 04/08/20 12:46 Nucleated RBC % 0.0 k/mm3 (0-1) 04/08/20 12:46 Neutrophils # 5.1 K/mm3 (1.3-6.0) 04/08/20 12:46 Lymphocytes # 2.05 k/mm3 (1.5-3.5) 04/08/20 12:46 Monocytes # 0.7 k/mm3 (0.0-1.0) 04/08/20 12:46 Eosinophils # 0.4 k/mm3 (0.0-0.7) 04/08/20 12:46 Absolute Basophils 0.0 k/mm3 (0.0-0.1) 04/08/20 12:46 PT 11.7 Seconds (9.1-10.7) H 04/08/20 12:46 INR (Anticoag Therapy) 1.19 INR (0.92-1.08) H 04/08/20 12:46 PTT ([place]) 27.2 Seconds (24-32) 04/08/20 12:46 Sodium 134 mmol/L (132-142) 04/08/20 12:46 Plasma Sodium 136 mmol/L (130-142) 04/08/20 12:46 Potassium 3.7 mmol/L (3.4-4.6) 04/08/20 12:46 Chloride 97 mmol/L (97-106) 04/08/20 12:46 Carbon Dioxide 29.3 mmol/L (24-32.6) 04/08/20 12:46 Anion Gap 11.4 mmol/L (6.8-13.8) 04/08/20 12:46 BUN 12 mg/dL (6-23) 04/08/20 12:46 Creatinine 0.88 mg/dL (0.4-1.4) 04/08/20 12:46 Est GFR (Non-Af Amer) 89 mL/min (60-130) 04/08/20 12:46 BUN/Creatinine Ratio 13.6 (9.0-21.6) 04/08/20 12:46 Random Glucose 203 mg/dL (70-110) H 04/08/20 12:46 Calcium 9.2 mg/dL (7.9-10.9) 04/08/20 12:46 Calcium Adj for Albumin 9.2 mg/dL (8.4-10.2) 04/08/20 12:46 Total Bilirubin 0.9 mg/dL (0.0-1.1) 04/08/20 12:46 AST 31 U/L (0-48) 04/08/20 12:46 ALT 44 U/L (19-67) 04/08/20 12:46 Alkaline Phosphatase 53 U/L (50-170) 04/08/20 12:46 Troponin I Less than 0.017 ng/mL (0.00-0.10) 04/08/20 17:01 Total Protein 7.0 gm/dL (6.2-8.2) 04/08/20 12:46 Albumin 3.6 gm/dl (3.4-5.0) 04/08/20 12:46 SARS-CoV-2 (PCR) Not detected (NotDetected) 04/08/20 14:20 Assessment/Plan - Narrative Narrative: Patient with multiple cardiac risk factors presents with brief left-sided facial numbness and left-sided chest pain. His neurologic deficits have resolved. Carotid ultrasound has been ordered for 1 week. His troponins have been negative. He is currently in sinus rhythm. No concerning findings on EKG. Likely discharge in the morning. Stress test has also been ordered for one week. He does not feel like he needs anything for pain overnight. Will resume home medications. - Assessment/Plan (1) TIA (transient ischemic attack) Problem: Acute (2) Chest pain Problem: Acute (3) Diabetes mellitus, type II Problem: Chronic Qualifiers: Diabetes mellitus care home insulin use: without roasterman use Diabetes mellitus complication status: with neurologic complications Diabetes mellitus complication detail: with polyneuropathy Qualified Code(s): E11.42 - Type 2 diabetes mellitus with diabetic polyneuropathy (4) Hypertension Problem: Acute Qualifiers: Hypertension type: essential hypertension Qualified Code(s): I10 - Essential (primary) hypertension (5) Atrial fibrillation Problem: Resolved Qualifiers: Atrial fibrillation type: paroxysmal Qualified Code(s): I48.0 - Paroxysmal atrial fibrillation
[2020-04-08] MEDS ORDERED: ACETAMINOPHEN 325 MG TABLET PO PRN (19:54)
[2020-04-08] MEDS: SOTALOL HCL 80 MG TABLET PO SCH (21:06)
[2020-04-08] MEDS: APIXABAN 5 MG TABLET PO SCH (21:06)
[2020-04-09] MEDS: APIXABAN 5 MG TABLET PO SCH (08:19)
[2020-04-09] MEDS: SOTALOL HCL 80 MG TABLET PO SCH (08:19)
[2020-04-09] MEDS ORDERED: FLUTICASONE PROPIONATE 120 SPRAY INHALER NS SCH (09:00)
[2020-04-09] MEDS ORDERED: HYDROCHLOROTHIAZIDE 25 MG TABLET PO SCH (09:00)
[2020-04-09] MEDS ORDERED: LIRAGLUTIDE subcut SCH (09:00)
[2020-04-09] MEDS ORDERED: DONEPEZIL HCL 5 MG TABLET PO SCH (09:00)
[2020-04-09] MEDS ORDERED: LOSARTAN POTASSIUM 50 MG TABLET PO SCH (09:00)
[2020-04-09] MEDS ORDERED: ROSUVASTATIN CALCIUM 10 MG TABLET PO SCH (09:00)
--- NOTE | 2020-04-09 09:36 | DS ---
(1) TIA (transient ischemic attack) Problem: Resolved (2) Chest pain Problem: Resolved (3) Diabetes mellitus, type II Problem: Chronic Qualifiers: Diabetes mellitus halfway insulin use: without halfway use Diabetes mellitus complication status: with neurologic complications Diabetes mellitus complication detail: with polyneuropathy Qualified Code(s): E11.42 - Type 2 diabetes mellitus with diabetic polyneuropathy (4) Hypertension Problem: Chronic Qualifiers: Hypertension type: essential hypertension Qualified Code(s): I10 - Essential (primary) hypertension (5) Atrial fibrillation Problem: Chronic Qualifiers: Atrial fibrillation type: paroxysmal Qualified Code(s): I48.0 - Paroxysmal atrial fibrillation Date of Discharge:: 04/09/20 Hospital Course: Patient with past medical history of previous TIA, type 2 diabetes, A. fib, hypertension was at home today and developed some left upper lip, left tongue, left hand numbness that lasted for about a minute, followed by left-sided chest pain. His cardiac medications were adjusted about a month ago by his manager contracting in [place]. He has not had a recent stress test. At the time of my exam, the numbness had resolved, but the left-sided dull chest pain persists and is intermittent. Denies shortness of breath, diaphoresis, nausea with the chest pain. No recent illness. He had a recent cervical spine surgery, possibly a fusion. No EKG changes indicative of ischemia or infarct, and troponins were negative. The following morning, his CP resolved, and he did not have recurrent numbness. He felt comfortable going home. Carotid US and pharmacologic stress test ordered. Will also have him follow up soon with his PCP and manager contracting. Procedures Performed: none Results and Findings: Lab Pending Results 04/08/20 12:46: WBC 8.2, RBC 4.35 L, Hgb 13.7, Hct 40.3 L, MCV 92.6, MCH 31.5 H, MCHC 34.0, RDW 12.1, Plt Count 214, MPV 12.3 H, Immature Gran % (Auto) 0.50 H, Immature Gran # (Auto) 0.04 H, Neutrophils % 61.4, Lymphocytes % 24.9, Monocytes % 8.4, Eosinophils % 4.3 H, Basophils % 0.5, Nucleated RBC % 0.0, Neutrophils # 5.1, Lymphocytes # 2.05, Monocytes # 0.7, Eosinophils # 0.4, Absolute Basophils 0.0 04/08/20 12:46: Sodium 134, Plasma Sodium 136, Potassium 3.7, Chloride 97, Carbon Dioxide 29.3, Anion Gap 11.4, BUN 12, Creatinine 0.88, Est GFR (Non-Af Amer) 89, BUN/Creatinine Ratio 13.6, Random Glucose 203 H, Calcium 9.2, Calcium Adj for Albumin 9.2, Total Bilirubin 0.9, AST 31, ALT 44, Alkaline Phosphatase 53, Troponin I Less than 0.017, Total Protein 7.0, Albumin 3.6 04/08/20 12:46: PT 11.7 H, INR (Anticoag Therapy) 1.19 H, PTT (Win) 27.2 04/08/20 14:20: SARS-CoV-2 (PCR) Not detected 04/08/20 17:01: Troponin I Less than 0.017 Discharge Location: Home Disposition: Home self-care Condition: Stable Discharge Activity: Activity as tolerated Discharge Diet: Low fat/chol Referrals: Sherman Navarro MD [Primary Care Provider] - Two Weeks Additional Patient Instructions (free text): Please also schedule with Dr. Pepe or Dr. Becerra, cardiology in the next few weeks. Complete Home Medications List: Complete Home Medication List: Blood-Glucose Meter [Blood Glucose Monitoring] 1 ea MC DAILY 02/07/16 Blood Sugar Diagnostic [Truetest Test Strips] 1 ea .ROUTE .MEDSUPPLY 05/11/19 pen needle, diabetic 32 gauge x 3/16" 1 ea .ROUTE DAILY #50 ea 11/24/19 pen needle, diabetic 32 gauge x 3/16" See Rx Instructions .ROUTE .MEDSUPPLY #100 ea 11/29/19 liraglutide (weight loss) 3 mg/0.5 mL (18 mg/3 mL) subcut pen injector 1.8 mg SUBCUT DAILY #15 ml 12/20/19 fluticasone propionate 50 mcg/actuation nasal spray,suspension 1 spray MARIOLA DAILY #18.2 ml 01/06/20 losartan 100 mg-hydrochlorothiazide 25 mg tablet 1 tab PO DAILY #90 tab 01/11/20 metformin 1,000 mg tablet See Rx Instructions .ROUTE .COMPLEX #180 unknown measurement unit code: tablet 02/02/20 rosuvastatin 10 mg tablet See Rx Instructions .ROUTE .COMPLEX #90 unknown measurement unit code: tablet 02/14/20 apixaban 5 mg tablet 5 mg PO BID 04/06/20 donepezil 5 mg tablet 5 mg PO DAILY 04/06/20 omeprazole 40 mg capsule,delayed release See Rx Instructions .ROUTE .COMPLEX #90 unknown measurement unit code: capsule 04/06/20 sotalol 80 mg tablet 80 mg PO BID #180 tab 04/06/20 Rosuvastatin Calcium 10 mg PO DAILY 04/08/20 Hydrochlorothiazide [Hydrodiuril] 25 mg PO DAILY tablet 04/09/20 Amb Orders for Discharge: Regular Exercise Stress Test Time Frame: 1 Week, Facility: [facility], Location: Respiratory Therapy US Carotid Duplex Comp Bilat * Time Frame: 1 Week, Facility: [facility], Location: Radiology
[2020-04-09 10:50] VITALS: BP 146/71
== END 2020-04-09 10:56 | disposition home or self-care (01) ==
LOC: ER 12:08 → MS 12:08
PROVIDERS: ADMIT Family Medicine; ATTEND Family Medicine
DX: Z86.73 Personal history of transient ischemic attack (TIA), and cerebral infarction without residual deficits; R07.9 Chest pain, unspecified; I10 Essential (primary) hypertension; Z79.4 Long term (current) use of insulin; G45.9 Transient cerebral ischemic attack, unspecified; Z87.891 Personal history of nicotine dependence; I48.0 Paroxysmal atrial fibrillation; E11.42 Type 2 diabetes mellitus with diabetic polyneuropathy